=== PATIENT | male | born 1940 | race Caucasian/White ===

== ENCOUNTER 2018-03-14 19:35 | Emergency (ER) | payer OTHER ==
[~2018-03-14] VITALS: Ht 170.2 cm; Wt 125.6 kg
[~2018-03-14 19:35] MED LIST: ABAC300 PO; AMLO5 PO; ASPI81CH PO; ATOR40TA PO; Bactrim Ds Tab1 EACH PO; CEPH500 PO; CIPRO500 MG PO; CLIN300 PO; COLC.6 PO; DOCU100 PO; DOXY100 PO; ERGO50000 PO; FEBU40TA PO; FURO20 PO; FURO80 PO; GEMF600 PO; GLIP2.5ER PO; LISI20 PO; LOVAZA PO; METF500 PO; METO2.5 PO; METO25ER PO; METO50 PO; Metoprolol Succ25 MG PO; NAPR550 PO; Norco 5-325 Ta1 EACH PO; OMEG1CAP30; OMEG1CAP30 PO; OXYACE5T PO; POTA10T PO; PRAV20 PO; QUIN10 PO; RXNAPNA550 PO; SACC250C; SPIR25 PO; Toprol Xl25 MG PO; ULORIC; Ultram50 MG PO; WARF5 PO; XARELTO20 MG PO
[2018-03-14 20:18] LABS: BASOPHILS ABSOLUTE AUTO 0.04 K/mm3 (0.00-0.23); BASOPHILS PERCENT AUTO 1 % (0-2); EOSINOPHILS ABSOLUTE AUTO 0.14 K/mm3 (0.00-0.68); EOSINOPHILS PERCENT AUTO 2 % (0-6); Hematocrit 41.7 % (37.0-53.0); Hemoglobin 13.2 g/dL (13.5-17.5); IMMATURE GRAN ABSOLUTE AUTO 0.03 K/mm3 (0.00-0.10); IMMATURE GRAN PERCENT AUTO 0 % (0-1); LYMPHOCYTES ABSOLUTE AUTO 1.17 K/mm3 (0.84-5.20); LYMPHOCYTES PERCENT AUTO 14 % (21-46); MONOCYTES ABSOLUTE AUTO 0.66 K/mm3 (0.16-1.47); MONOCYTES PERCENT AUTO 8 % (4-13); Mean Corpuscular HGB 27.9 pg (26.0-34.0); Mean Corpuscular HGB Conc 31.7 g/dL (31.5-36.5); Mean Corpuscular Volume 88 fL (80-100); Mean Platelet Volume 10.6 fL (9.1-12.4); NEUTROPHILS ABSOLUTE AUTO 6.45 K/mm3 (1.96-9.15); NEUTROPHILS PERCENT AUTO 76 % (41-73); Platelet Count 245 K/mm3 (150-400); RDW Coefficient Variation 13.5 % (11.7-14.2); RDW Standard Deviation 43.7 fL (35.1-46.3); Red Blood Cell Count 4.73 M/mm3 (4.30-5.90); White Blood Cell Count 8.49 K/mm3 (4.00-11.30)
[2018-03-14 20:21] LABS: Source, Urine Clean Catch
[2018-03-14 20:23] LABS: Bilirubin, Urine Neg (Neg); Blood, Urine 1+ (Neg); Glucose Qualitative, Urine 4+ (Neg); Ketones, Urine Neg (Neg); Leukocyte Esterase, Urine 1+ (Neg); Nitrite, Urine Neg (Neg); Protein, Urine 2+ (Neg); Urobilinogen, Urine NORM (Normal); pH, Urine 6.5 (5.0-8.0)
[2018-03-14 20:30] LABS: Appearance, Urine Clear (Clear); Color, Urine Pale Yellow (P-Yellow)
[2018-03-14 20:33] LABS: Bacteria Rare /hpf; Red Blood Cells, Urine 0-2 /hpf (0-2); Squamous Epithelial Cells Few /hpf (Few); White Blood Cells, Urine 0-2 /hpf (0-5)
[2018-03-14 20:36] LABS: Alanine Aminotransfer (ALT/SGP 25 U/L (12-78); Albumin, Blood 3.3 g/dL (3.4-5.0); Albumin/Globulin Ratio 0.8 (0.8-1.8); Alk Phos 152 U/L (50-136); Anion Gap 7 mmol/L (6-16); Aspartate Aminotrans (AST/SGOT 17 U/L (12-37); Bilirubin, Total 0.3 mg/dL (0.1-1.0); Blood Urea Nitrogen 49 mg/dL (8-24); Bun/Creatinine Ratio 26.6 (12.0-20.0); CO2, Blood 25 mmol/L (21-32); Calcium, Blood 8.6 mg/dL (8.5-10.1); Chloride, Blood 107 mmol/L (98-108); Creatinine, Blood 1.84 mg/dL (0.60-1.20); Globulin, Blood 4.1 g/dL (2.2-4.0); Glomerular Filtration Rate 38 (60-); Glucose, Blood 300 mg/dL (70-99); Potassium, Blood 5.3 mmol/L (3.5-5.5); Sodium, Blood 139 mmol/L (136-145); Total Protein, Blood 7.4 g/dL (6.4-8.2)
[2018-03-14 22:08] LABS: Troponin I <0.015 ng/mL (0.000-0.040)
== END 2018-03-15 00:45 | disposition home or self-care (01) ==
LOC: ER 19:35
PROVIDERS: Emergency Medicine
DX: E11.65 Type 2 diabetes mellitus with hyperglycemia (principal); I11.0 Hypertensive heart disease with heart failure; I50.9 Heart failure, unspecified; I48.91 Unspecified atrial fibrillation; E78.5 Hyperlipidemia, unspecified; Z79.899 Other long term (current) drug therapy; Z79.82 Long term (current) use of aspirin; Z79.84 Long term (current) use of oral hypoglycemic drugs
CPT/HCPCS: 36415; 71046; 74176; 80053; 81000; 81001; 83690; 83880; 84484; 85025; 87086; 93005; 93010; 99284; J1815

== ENCOUNTER 2019-11-21 12:21 | Emergency (ER) | payer OTHER ==
[~2019-11-21] VITALS: Ht 170.2 cm; Wt 117.9 kg
[2019-11-21 12:56] LABS: BASOPHILS ABSOLUTE AUTO 0.03 K/mm3 (0.00-0.23); BASOPHILS PERCENT AUTO 0 % (0-2); EOSINOPHILS ABSOLUTE AUTO 0.13 K/mm3 (0.00-0.68); EOSINOPHILS PERCENT AUTO 1 % (0-6); Hematocrit 45.1 % (37.0-53.0); Hemoglobin 13.7 g/dL (13.5-17.5); IMMATURE GRAN ABSOLUTE AUTO 0.03 K/mm3 (0.00-0.10); IMMATURE GRAN PERCENT AUTO 0 % (0-1); LYMPHOCYTES ABSOLUTE AUTO 1.15 K/mm3 (0.84-5.20); LYMPHOCYTES PERCENT AUTO 12 % (21-46); MONOCYTES ABSOLUTE AUTO 0.61 K/mm3 (0.16-1.47); MONOCYTES PERCENT AUTO 7 % (4-13); Mean Corpuscular HGB Conc 30.4 g/dL (31.5-36.5); Mean Corpuscular Volume 89 fL (80-100); Mean Platelet Volume 10.1 fL (9.1-12.4); NEUTROPHILS ABSOLUTE AUTO 7.33 K/mm3 (1.96-9.15); NEUTROPHILS PERCENT AUTO 79 % (41-73); Platelet Count 335 K/mm3 (150-400); RDW Coefficient Variation 13.8 % (11.7-14.2); RDW Standard Deviation 45.1 fL (35.1-46.3); Red Blood Cell Count 5.07 M/mm3 (4.30-5.90); White Blood Cell Count 9.28 K/mm3 (4.00-11.30)
[2019-11-21 13:18] LABS: Alanine Aminotransfer (ALT/SGP 17 U/L (12-78); Albumin, Blood 3.6 g/dL (3.4-5.0); Albumin/Globulin Ratio 0.7 (0.8-1.8); Alk Phos 139 U/L (50-136); Anion Gap 5 mmol/L (6-16); Aspartate Aminotrans (AST/SGOT 11 U/L (12-37); Bilirubin, Total 0.6 mg/dL (0.1-1.0); Blood Urea Nitrogen 53 mg/dL (8-24); Bun/Creatinine Ratio 27.6 (12.0-20.0); CO2, Blood 28 mmol/L (21-32); Chloride, Blood 106 mmol/L (98-108); Creatinine, Blood 1.92 mg/dL (0.60-1.20); Globulin, Blood 4.9 g/dL (2.2-4.0); Glomerular Filtration Rate 36 (60-); Glucose, Blood 107 mg/dL (70-99); Potassium, Blood 4.7 mmol/L (3.5-5.5); Sodium, Blood 139 mmol/L (136-145); Total Protein, Blood 8.5 g/dL (6.4-8.2); Troponin I <0.015 ng/mL (0.000-0.040)
== END 2019-11-21 16:12 | disposition home or self-care (01) ==
LOC: ER 12:21
PROVIDERS: Physician Assistant
DX: R53.1 Weakness (principal); I11.0 Hypertensive heart disease with heart failure; E11.9 Type 2 diabetes mellitus without complications; I48.91 Unspecified atrial fibrillation; E78.5 Hyperlipidemia, unspecified; M10.9 Gout, unspecified; I50.9 Heart failure, unspecified; Z79.82 Long term (current) use of aspirin; Z79.899 Other long term (current) drug therapy; Z79.84 Long term (current) use of oral hypoglycemic drugs
CPT/HCPCS: 36415; 71046; 80053; 83880; 84484; 85025; 93005; 93010; 99284-25

== ENCOUNTER 2020-10-17 07:30 | Day surgery (SDC) | payer OTHER ==
[~2020-10-17] VITALS: Ht 170.2 cm; Wt 114.9 kg
[~2020-10-17 07:30] MED LIST changes: +Aspir 8181 MG PO; +GLIP5 PO; +METO25 PO
--- NOTE | 2020-10-17 08:03 | NUR ---
10/17/20 0803 Freida Manzo PT IS A POOR HISTORIAN.
--- NOTE | 2020-10-17 10:26 | NUR ---
10/17/20 1026 Adela Bowden PT'S FEET NOTED TO BE VERY SOILED, POOR HYGIENE. PER PT OK, TRIED TO CLEAN HIS FEET FOR HIM. OPEN SORE NOTED ON LEFT GREAT TOE, C/O SORENESS TO LEFT FOOT. INSTRUCTED TO SEE PCP FOR TREATMENT. PT VERBALIZES UNDERSTANDING.
== END 2020-10-17 10:17 | disposition home or self-care (01) ==
LOC: ORSCSDS 07:30
PROVIDERS: Ophthalmology
PROC: 08RJ3JZ Replacement of Right Lens with Synthetic Substitute, Percutaneous Approach (ICD-10-PCS; principal; 2020-10-17 08:45)
DX: H25.11 Age-related nuclear cataract, right eye (principal); I10 Essential (primary) hypertension; E11.9 Type 2 diabetes mellitus without complications; G47.33 Obstructive sleep apnea (adult) (pediatric); E78.5 Hyperlipidemia, unspecified; N18.30 Chronic kidney disease, stage 3 unspecified; I48.91 Unspecified atrial fibrillation; Z79.01 Long term (current) use of anticoagulants; Z79.82 Long term (current) use of aspirin; Z79.899 Other long term (current) drug therapy; E66.01 Morbid (severe) obesity due to excess calories; Z68.39 Body mass index [BMI] 39.0-39.9, adult
CPT/HCPCS: 82947; J2001; J2250; J2370; J3010; J3301; J7040; V2632

== ENCOUNTER 2020-11-13 09:29 | Day surgery (SDC) | payer OTHER ==
[~2020-11-13] VITALS: Ht 170.2 cm; Wt 111.5 kg
[~2020-11-13 09:29] MED LIST changes: -Aspir 8181 MG PO; -FEBU40TA PO; -FURO20 PO; -GLIP5 PO; -LISI20 PO; -METO25 PO
--- NOTE | 2020-11-13 12:08 | NUR ---
11/13/20 1208 Clara Breaux LATE ENTRY---UPON ADMIT IT WAS NOTICED THAT THE PATIENT AND HIS CLOTHES WERE VERY DIRTY, FINGERNAILS UNKEPT AND DIRTY AND PATIENT HAS A SORE ON THE LEFT RING FINGER AROUND HIS NAIL THAT HE STATES WAS CAUSED WHEN HE FELL. THE AREA APPEARS DIRTY WITH A LARGE DRY SCAB AND AROUND THIS THE SKIN IS RED AND IRRITATED. PATIENTS FEET WERE IN SLIPPERS BUT HIS ANKLES WERE VERY DIRTY AND THERE WAS A LARGE AMOUNT OF DEBRIS FALLING OUT OF THE SLIPPERS ONTO THE BED. THE PATIENT IS ABLE TO ANSWER ALL QUESTIONS APPROPRIATELY. HE IS ONLY UNAWARE OF WHICH MEDICATIONS HE TAKES HE STATES HIS CAREGIVER GIVES HIS PILLS TO HIM BUT HE DOES KNOW HE TOOK THEM AT ABOUT 7AM. DISCUSSED WITH PATIENT THAT HE SHOULD HAVE DOCTOR LOOK AT HIS FINGER IT MAY BE GETTING INFECTED. HE ASKED ME TO BUT SOME ANTIBIOTIC CREAM ON IT BUT IT EXPLAINED TO HIM I WASN'T ABLE TO DO THIS WITHOUT A PHYSICIAN ORDER. I DID DISCUSS THIS PATIENT WITH DR LEMUS AND DR VANEGAS. BOTH DOCTORS STATE THIS PATIENT HAS IMPROVED IN HIS CLEANLINESS SINCE PRIOR VISIT IN 10/14 WHEN SENIOR SERVICES WAS CALLED. BOTH DOCTORS FEEL THE PATIENT IS BETTER AND DR LEMUS STATES HIS OFFICE IS AWARE OF THE SITUATION AND WILL CONTINUE TO MONITOR PATIENT.
== END 2020-11-13 12:12 | disposition home or self-care (01) ==
LOC: ORSCSDS 09:29
PROVIDERS: Ophthalmology
PROC: 08RK3JZ Replacement of Left Lens with Synthetic Substitute, Percutaneous Approach (ICD-10-PCS; principal; 2020-11-13 11:00)
DX: H25.12 Age-related nuclear cataract, left eye (principal); I10 Essential (primary) hypertension; I48.91 Unspecified atrial fibrillation; G47.33 Obstructive sleep apnea (adult) (pediatric); E11.9 Type 2 diabetes mellitus without complications; E66.9 Obesity, unspecified; Z68.38 Body mass index [BMI] 38.0-38.9, adult; Z79.899 Other long term (current) drug therapy
CPT/HCPCS: 82947; J2001; J2250; J3010; J3301; J7040; V2632

== ENCOUNTER 2020-11-16 14:43 | Emergency (ER) | payer OTHER ==
[~2020-11-16] VITALS: Ht 170.2 cm; Wt 113.4 kg
[2020-11-16 15:20] LABS: Hematocrit 34.4 % (37.0-53.0); Hemoglobin 9.7 g/dL (13.5-17.5); Mean Corpuscular HGB 24.1 pg (26.0-34.0); Mean Corpuscular HGB Conc 28.2 g/dL (31.5-36.5); Mean Corpuscular Volume 86 fL (80-100); Mean Platelet Volume 10.3 fL (9.1-12.4); Platelet Count 346 K/mm3 (150-400); RDW Coefficient Variation 15.7 % (11.7-14.2); RDW Standard Deviation 48.6 fL (35.1-46.3); Red Blood Cell Count 4.02 M/mm3 (4.30-5.90); White Blood Cell Count 8.48 K/mm3 (4.00-11.30)
[2020-11-16 15:49] LABS: Albumin/Globulin Ratio 0.7 (0.8-1.8); BASOPHILS PERCENT MAN 0 % (0-2); Bilirubin, Total 0.3 mg/dL (0.1-1.0); Bun/Creatinine Ratio 26.2 (12.0-20.0); Calcium, Blood 8.4 mg/dL (8.5-10.1); Creatinine, Blood 2.25 mg/dL (0.60-1.20); EOSINOPHILS ABSOLUTE MAN 0.16 K/mm3 (0.00-0.68); EOSINOPHILS PERCENT MAN 2 % (0-6); Globulin, Blood 4.3 g/dL (2.2-4.0); LYMPHOCYTES ABSOLUTE MAN 1.44 K/mm3 (0.84-5.20); LYMPHOCYTES PERCENT MAN 17 % (21-46); METAMYELOCYTE ABSOLUTE MAN 0.08 K/mm3 (0.00-0.00); METAMYELOCYTE PERCENT MAN 1 % (0-0); MONOCYTES PERCENT MAN 6 % (4-13); NEUTROPHILS ABSOLUTE MAN 6.27 K/mm3 (1.96-9.15); Potassium, Blood 5.7 mmol/L (3.5-5.5); SEG NEUTROPHILS PERCENT MAN 74 % (41-73); TOTAL CELLS COUNTED 100; Total Protein, Blood 7.3 g/dL (6.4-8.2)
[2020-11-16] MEDS ORDERED: LOKELMA PO (16:25)
== END 2020-11-16 17:11 | disposition home or self-care (01) ==
LOC: ER 14:43
PROVIDERS: Physician Assistant
DX: Z11.59 Encounter for screening for other viral diseases (principal); E87.5 Hyperkalemia; E11.22 Type 2 diabetes mellitus with diabetic chronic kidney disease; I12.9 Hypertensive chronic kidney disease with stage 1 through stage 4 chronic kidney disease, or unspecified chronic kidney disease; N18.9 Chronic kidney disease, unspecified; I48.91 Unspecified atrial fibrillation; Z79.899 Other long term (current) drug therapy; Z79.82 Long term (current) use of aspirin; Z79.01 Long term (current) use of anticoagulants; I10 Essential (primary) hypertension; E78.5 Hyperlipidemia, unspecified
CPT/HCPCS: 36415; 80053; 80061; 82043; 83036; 85025; 86803; 93005; 93010; 99283-25; A9270

== ENCOUNTER → 2021-01-11 | Outpatient (CLI) | payer OTHER ==
[~2021-01-11] MED LIST changes: +Aspir 8181 MG PO; +FEBU40TA PO; +FURO20 PO; +GLIP5ER PO; +LISI20 PO; +LOKELMA PO; +METO25 PO; +OMEGA-3 FISH O1 EAC6 PO; +POTA8 PO
== END | disposition home or self-care (01) ==
LOC: LAB SHORT 14:21 → PLD 14:21
DX: L91.8 Other hypertrophic disorders of the skin (principal); D22.5 Melanocytic nevi of trunk
CPT/HCPCS: 88305

== ENCOUNTER 2021-01-28 15:19 | Emergency (ER) | payer OTHER ==
[~2021-01-28] VITALS: Ht 170.2 cm; Wt 83.9 kg
[~2021-01-28 15:19] MED LIST changes: -Aspir 8181 MG PO; -FEBU40TA PO; -FURO20 PO; -GLIP5ER PO; -LISI20 PO; -METO25 PO; -OMEGA-3 FISH O1 EAC6 PO; -POTA8 PO
[2021-01-28 15:57] LABS: BASOPHILS ABSOLUTE AUTO 0.03 K/mm3 (0.00-0.23); BASOPHILS PERCENT AUTO 0 % (0-2); EOSINOPHILS PERCENT AUTO 1 % (0-6); Hematocrit 35.2 % (37.0-53.0); Hemoglobin 10.2 g/dL (13.5-17.5); IMMATURE GRAN ABSOLUTE AUTO 0.04 K/mm3 (0.00-0.10); IMMATURE GRAN PERCENT AUTO 1 % (0-1); LYMPHOCYTES ABSOLUTE AUTO 1.04 K/mm3 (0.84-5.20); LYMPHOCYTES PERCENT AUTO 13 % (21-46); MONOCYTES ABSOLUTE AUTO 0.55 K/mm3 (0.16-1.47); MONOCYTES PERCENT AUTO 7 % (4-13); Mean Corpuscular HGB 23.4 pg (26.0-34.0); Mean Corpuscular Volume 81 fL (80-100); Mean Platelet Volume 10.1 fL (9.1-12.4); NEUTROPHILS ABSOLUTE AUTO 6.23 K/mm3 (1.96-9.15); NEUTROPHILS PERCENT AUTO 78 % (41-73); Platelet Count 343 K/mm3 (150-400); RDW Coefficient Variation 16.3 % (11.7-14.2); RDW Standard Deviation 48.2 fL (35.1-46.3); Red Blood Cell Count 4.35 M/mm3 (4.30-5.90); White Blood Cell Count 7.99 K/mm3 (4.00-11.30)
[2021-01-28 16:24] LABS: Troponin I <0.015 ng/mL (0.000-0.040)
[2021-01-28 16:29] LABS: Alanine Aminotransfer (ALT/SGP 18 U/L (12-78); Albumin, Blood 2.9 g/dL (3.4-5.0); Albumin/Globulin Ratio 0.6 (0.8-1.8); Alk Phos 124 U/L (50-136); Anion Gap 4 mmol/L (6-16); Aspartate Aminotrans (AST/SGOT 25 U/L (12-37); Bilirubin, Total 0.4 mg/dL (0.1-1.0); Blood Urea Nitrogen 55 mg/dL (8-24); Bun/Creatinine Ratio 27.6 (12.0-20.0); CO2, Blood 26 mmol/L (21-32); Calcium, Blood 8.6 mg/dL (8.5-10.1); Chloride, Blood 109 mmol/L (98-108); Creatinine, Blood 1.99 mg/dL (0.60-1.20); Globulin, Blood 4.6 g/dL (2.2-4.0); Glomerular Filtration Rate 35 (60-); Glucose, Blood 210 mg/dL (70-99); Sodium, Blood 139 mmol/L (136-145); Total Protein, Blood 7.5 g/dL (6.4-8.2)
[2021-01-28 17:38] LABS: Source, Urine Clean Catch
[2021-01-28 17:49] LABS: Appearance, Urine Hazy (Clear); Bilirubin, Urine Neg (Neg); Blood, Urine Neg (Neg); Color, Urine Yellow (P-Yellow); Glucose Qualitative, Urine Neg (Neg); Ketones, Urine Neg (Neg); Leukocyte Esterase, Urine 1+ (Neg); Nitrite, Urine Neg (Neg); Protein, Urine Neg (Neg); Specific Gravity, Urine 1.015 (1.003-1.022); Urobilinogen, Urine NORM (Normal)
[2021-01-28 17:59] LABS: Red Blood Cells, Urine 0-2 /hpf (0-2)
[2021-01-28 18:00] LABS: Bacteria Few /hpf; Mucus Mod (0-Heavy); Squamous Epithelial Cells Rare /hpf (Few)
[2021-01-28 18:05] LABS: Calcium, Ionized (POC) 1.13 mmol/L (1.10-1.46); Chloride (POC) 106 mmol/L (98-108); Creatinine (POC) 2.3 mg/dL (0.8-1.3); Glucose (ISTAT POC) 116 mg/dL (70-99); Hemoglobin (POC) 11.6 g/dL (13.5-17.5); Potassium (POC) 4.9 mmol/L (3.5-5.5); Sodium (POC) 142 mmol/L (135-148); Total CO2 (POC) 24 mmol/L (21-32)
== END 2021-01-28 19:35 | disposition home or self-care (01) ==
LOC: ER 15:19
PROVIDERS: Emergency Medicine; Physician Assistant
DX: R53.1 Weakness (principal); Z79.01 Long term (current) use of anticoagulants; Z79.84 Long term (current) use of oral hypoglycemic drugs; Z79.82 Long term (current) use of aspirin; Z79.899 Other long term (current) drug therapy
CPT/HCPCS: 36415; 80047; 80053; 81001; 83690; 83880; 84484; 85014; 85025; 93005; 93010; 99284-25

== ENCOUNTER 2021-04-26 19:25 | Inpatient (IN) | payer OTHER ==
[~2021-04-26] VITALS: Ht 170.2 cm; Wt 118.4 kg
[2021-04-26 19:52] LABS: BASOPHILS ABSOLUTE AUTO 0.03 K/mm3 (0.00-0.23); BASOPHILS PERCENT AUTO 0 % (0-2); EOSINOPHILS ABSOLUTE AUTO 0.02 K/mm3 (0.00-0.68); EOSINOPHILS PERCENT AUTO 0 % (0-6); Hematocrit 24.3 % (37.0-53.0); Hemoglobin 6.8 g/dL (13.5-17.5); IMMATURE GRAN ABSOLUTE AUTO 0.04 K/mm3 (0.00-0.10); IMMATURE GRAN PERCENT AUTO 0 % (0-1); LYMPHOCYTES ABSOLUTE AUTO 0.59 K/mm3 (0.84-5.20); LYMPHOCYTES PERCENT AUTO 6 % (21-46); MONOCYTES ABSOLUTE AUTO 0.71 K/mm3 (0.16-1.47); MONOCYTES PERCENT AUTO 7 % (4-13); Mean Corpuscular HGB 22.1 pg (26.0-34.0); Mean Corpuscular Volume 79 fL (80-100); Mean Platelet Volume 10.3 fL (9.1-12.4); NEUTROPHILS ABSOLUTE AUTO 9.43 K/mm3 (1.96-9.15); NEUTROPHILS PERCENT AUTO 87 % (41-73); NRBC ABSOLUTE 0.03 K/mm3 (0.00-0.02); NRBC Auto 0.3 /100 WBC (0.0-0.2); Platelet Count 395 K/mm3 (150-400); RDW Standard Deviation 48.1 fL (35.1-46.3); Red Blood Cell Count 3.07 M/mm3 (4.30-5.90); White Blood Cell Count 10.82 K/mm3 (4.00-11.30)
[2021-04-26 20:14] LABS: Magnesium, Blood 2.9 mg/dL (1.6-2.4); Troponin I <0.015 ng/mL (0.000-0.040)
[2021-04-26] MEDS ORDERED: XARELTO20 MG PO (20:26)
[2021-04-26] MEDS ORDERED: GLIP5ER PO (20:26)
[2021-04-26] MEDS ORDERED: POTA8 PO (20:27)
[2021-04-26] MEDS ORDERED: FEBU40TA PO (20:28)
[2021-04-26] MEDS ORDERED: FURO20 PO (20:28)
[2021-04-26] MEDS ORDERED: METO25 PO (20:28)
[2021-04-26] MEDS ORDERED: LISI20 PO (20:28)
[2021-04-26] MEDS ORDERED: Aspir 8181 MG PO (20:28)
[2021-04-26 20:32] LABS: Alanine Aminotransfer (ALT/SGP 15 U/L (12-78); Albumin, Blood 2.8 g/dL (3.4-5.0); Albumin/Globulin Ratio 0.7 (0.8-1.8); Alk Phos 118 U/L (50-136); Anion Gap 7 mmol/L (6-16); Aspartate Aminotrans (AST/SGOT 12 U/L (12-37); Bilirubin, Total 0.3 mg/dL (0.1-1.0); Blood Urea Nitrogen 134 mg/dL (8-24); Bun/Creatinine Ratio 23.2 (12.0-20.0); CO2, Blood 18 mmol/L (21-32); Calcium, Blood 7.7 mg/dL (8.5-10.1); Chloride, Blood 113 mmol/L (98-108); Creatinine, Blood 5.78 mg/dL (0.60-1.20); Globulin, Blood 4.1 g/dL (2.2-4.0); Glomerular Filtration Rate 10 (60-); Glucose, Blood 139 mg/dL (70-99); Potassium, Blood 8.5 mmol/L (3.5-5.5); Sodium, Blood 138 mmol/L (136-145); Total Protein, Blood 6.9 g/dL (6.4-8.2)
[2021-04-26] MEDS ORDERED: OMEGA-3 FISH O1 EAC6 PO (20:36)
[2021-04-26 21:58] LABS: Source, Urine Voided
[2021-04-26 22:01] LABS: Appearance, Urine Clear (Clear); Bilirubin, Urine Neg (Neg); Blood, Urine 3+ (Neg); Color, Urine Yellow (P-Yellow); Glucose Qualitative, Urine Neg (Neg); Ketones, Urine Neg (Neg); Leukocyte Esterase, Urine 3+ (Neg); Nitrite, Urine Neg (Neg); Protein, Urine 2+ (Neg); Urobilinogen, Urine NORM (Normal)
[2021-04-26 22:09] LABS: Bacteria Mod /hpf; Squamous Epithelial Cells Few /hpf (Few)
[2021-04-27 03:21] LABS: BASOPHILS ABSOLUTE AUTO 0.02 K/mm3 (0.00-0.23); BASOPHILS PERCENT AUTO 0 % (0-2); EOSINOPHILS ABSOLUTE AUTO 0.02 K/mm3 (0.00-0.68); EOSINOPHILS PERCENT AUTO 0 % (0-6); Hematocrit 28.3 % (37.0-53.0); Hemoglobin 8.2 g/dL (13.5-17.5); IMMATURE GRAN ABSOLUTE AUTO 0.06 K/mm3 (0.00-0.10); IMMATURE GRAN PERCENT AUTO 1 % (0-1); LYMPHOCYTES ABSOLUTE AUTO 0.82 K/mm3 (0.84-5.20); LYMPHOCYTES PERCENT AUTO 7 % (21-46); MONOCYTES PERCENT AUTO 8 % (4-13); Mean Corpuscular HGB 23.6 pg (26.0-34.0); Mean Corpuscular Volume 81 fL (80-100); Mean Platelet Volume 9.8 fL (9.1-12.4); NEUTROPHILS ABSOLUTE AUTO 9.51 K/mm3 (1.96-9.15); NEUTROPHILS PERCENT AUTO 84 % (41-73); NRBC ABSOLUTE 0.04 K/mm3 (0.00-0.02); NRBC Auto 0.4 /100 WBC (0.0-0.2); Platelet Count 359 K/mm3 (150-400); RDW Coefficient Variation 17.9 % (11.7-14.2); RDW Standard Deviation 52.3 fL (35.1-46.3); Red Blood Cell Count 3.48 M/mm3 (4.30-5.90); White Blood Cell Count 11.33 K/mm3 (4.00-11.30)
[2021-04-27 03:40] LABS: Uric Acid, Blood 3.2 mg/dL (3.5-7.2)
[2021-04-27 03:50] LABS: Magnesium, Blood 2.6 mg/dL (1.6-2.4)
[2021-04-27 03:56] LABS: Albumin, Blood 2.8 g/dL (3.4-5.0); Anion Gap 8 mmol/L (6-16); Blood Urea Nitrogen 131 mg/dL (8-24); Bun/Creatinine Ratio 23.1 (12.0-20.0); CO2, Blood 18 mmol/L (21-32); Calcium, Blood 7.3 mg/dL (8.5-10.1); Chloride, Blood 113 mmol/L (98-108); Creatinine, Blood 5.67 mg/dL (0.60-1.20); Glomerular Filtration Rate 10 (60-); Glucose, Blood 103 mg/dL (70-99); Phosphorus, Blood 8.4 mg/dL (2.5-4.9); Sodium, Blood 139 mmol/L (136-145)
[2021-04-27 04:07] LABS: Potassium, Blood 7.3 mmol/L (3.5-5.5)
--- NOTE | 2021-04-27 06:48 | NUR ---
ASSUMPTION OF CARE/ SHIFT SUMMARY PT ARRIVED TO ICU FROM ER VIA GURNEY, TX TO BED VIA SLIDER SHEET. PT ALERT BUT CONFUSED UPON ARRIVAL. FOLLOWING COMMANDS BUT QUICKLY FORGETS WHAT WAS SAID. UNSURE OF PTS BASELINE MENTAL STATUS, PER REPORT EMS DID NOT INFORM ER NURSE. PT FIDGETY, UNCOMFORTABLE, GRABBING AT LINES AND HEALY CATH. THIS NURSE IN PT ROOM ATTEMPTING TO REDIRECT WITHOUT SUCCESS, BL SOFT WRIST RESTRAINTS PLACED TO PROTECT LINES. PTS SKIN DRY AND FLAKY, SEE PHOTOS IN CHART. SODIUM BICARB INFUSING @ 100/HR. SECOND UNIT OF PRBC INITIATED UPON ARRIVAL TO THE UNIT. PROTONIX GTT INFUSING. TEMP HEALY CATH PATENT, DRAINING SCANT AMOUNT OF RED URINE. UNSURE OF LAST BM, PT POOR HISTORIAN. DR. PENDLETON HAS BEEN CONSULTED, MANAGING PT AT THIS TIME. DR BARBOZA ALSO CONSULTED, NOTIFIED THIS AM OF THE NEED FOR DIALYSIS CATHETER. VSS IMPROVING AT THIS TIME. REPORT GIVEN TO ONCOMING NURSE.
--- NOTE | 2021-04-27 08:58 | NUR ---
CARE ASSUMED OF PT AT 0700. PT SLEEPING, AWAKENS EASILY TO VOICE, STARTLES EASILY. SPEECH GARBLED AND DIFFICULT TO UNDERSTAND AT TIMES, BUT ORIENTED TO SELF AND DATE. STATES HE IS ESTRANGED FROM CHILDREN. DOES NOT KNOW HOW HE ENDED UP HERE. PT REQUEST TO HAVE "TIES" REMOVED FROM WRIST. RESTRAINTS REMOVED AT 0730. PT VERY DROWSY, FALLS ASLEEP IN BETWEEN QUESTIONS. ORAL CARE COMPLETED, PT COUGHED/CHOCKED ON FLUID FROM SWAB, PT SX'D. WILL KEEP NPO. PT DOES HAVE SOME APNEA WITH SLEEP, SATS DO NOT FALL. 02 AT 2L H&H LOW. BP LOW NORMAL W MAPS>65. BICARB GTT INFUSING AT 100/HR. PROTONIX GTT INFUSING. DR PENDLETON CALLED THIS AM R/T K+6.4. / AMP BICARB ORDERED, INCREASED GTT TO 150CC/HR W PLANS TO START HD THIS AM; DR BARBOZA TO PLACE MAHURKER CATH. AFTER THIS ORDER OBTAINED PT BECAME HYPOTENSIVE W BP 69/42, MAP AROUND 57-60. DR BARBOZA CALLED, 500CC NS BOLUS STARTED, LEVOPHED AVAILABLE. PT IS RESPONDING TO FLUIDS. STAT H&H DRAWN. DR BARBOZA IN UNIT NOW AND WILL PLACE DIALYSIS CATH SHORTLY.
[2021-04-27 09:00] LABS: Hematocrit 27.7 % (37.0-53.0); Hemoglobin 8.1 g/dL (13.5-17.5)
--- NOTE | 2021-04-27 09:10 | NUR ---
H&H STABLE, HAS NOT CHANGED MUCH FROM EARLIER RESULTS.
--- NOTE | 2021-04-27 10:22 | NUR ---
TRIALYSIS CATH PLACED TO [facility] BY DR BARBOZA FOR HD TODAY. PLACED W/O DIFFICULTY. VILMA Gay DIALYSIS NOTIFIED. HD WILL BE AROUND [address] PENDLETON NOTIFIED. NO ORDERES TO RECHECK K+, WILL BE TREATED W HD TODAY. LEVOPHED BRIEFLY STARTED BUT THEN PLACED ON STANDBY BP STABLE.
--- NOTE | 2021-04-27 12:36 | NUR ---
VILMA GOODE AT BEDSIDE TO START HD. LEVOPHED STARTED AT 2MCG FOR MAP <65.
--- NOTE | 2021-04-27 12:38 | NUR ---
LOTION APPLIED TO DRY AND SCALING LEGS. SCD'S PLACED. ABD FOLDS CLEANED, NYSTATIN POWDER PLACED.
--- NOTE | 2021-04-27 13:26 | NUR ---
DR ESPINO IN TO SEE PT, FULL UPDATE GIVEN.
--- NOTE | 2021-04-27 13:40 | NUR ---
CAROLYN SOUSA CONTACTED, LISTED NEXT OF KIN. CAROLYN CONTACTED W PT'S PERMISSION. CAROLYN LIVES ON PT'S PROPERTY AND ASSISTED WITH DAILY MEDS, GROCERY, MEALS, APPOINTMENTS. FRIEND STATES PT WAS CONFUSED X3 DAYS W SLURRED SPEECH, EACH DAY'S SYMPTOMS A LITTLE WORSE THAN THE PREVIOUS DAYS. PT DECLINED EMS. ON THIRD DAY PT WAS FOUND BY FRINED VERY CONFUSED IN YARD W PANTS PULLED DOWN. EMS WAS THEN CALLED. THIS INFO RELAYED TO DR BARBOZA. PLAN TO SCAN HEAD TOMORROW TO R/O CVA.
--- NOTE | 2021-04-27 14:50 | NUR ---
HD COMPLETE. 1.5L TAKEN OFF. BP STABLE W LEVOPHED AT 2MCG. PT REQUIRES FREQUEST ORAL SUCTIONING, UNABLE TO CLEAR SECRETIONS WELL. SECRETIONS THICK AND COPIOUS.
--- NOTE | 2021-04-27 15:44 | NUR ---
EYELET OPERATOR AT BEDSIDE.
--- NOTE | 2021-04-27 16:28 | NUR ---
Echocardiogram completed.
[2021-04-27 17:59] LABS: Percent Saturation 13.5 % (20.0-50.0)
--- NOTE | 2021-04-27 18:10 | NUR ---
POWERGLIDE PLACED TO GUSTAVO. LEVOPHED PLACED ON STANDBY. PT CONTINUES TO AWAKEN TO VOICE AND ANSWER QUESTIONS APPROPRIATELY, PT HAS HUMOR WELL. PT CONTINUES TO CHOKE ON SECRETIONS, VERY POOR GAG AND VERY POOR SWALLOW. PT REQUIRES FREQUENT DEEP SUCTIONING DOWN BACK OF THROAT.
[2021-04-27 18:50] LABS: Albumin, Blood 2.4 g/dL (3.4-5.0); Anion Gap 6 mmol/L (6-16); Blood Urea Nitrogen 80 mg/dL (8-24); Bun/Creatinine Ratio 21.4 (12.0-20.0); CO2, Blood 29 mmol/L (21-32); Calcium, Blood 7.3 mg/dL (8.5-10.1); Chloride, Blood 108 mmol/L (98-108); Creatinine, Blood 3.74 mg/dL (0.60-1.20); Glomerular Filtration Rate 17 (60-); Glucose, Blood 139 mg/dL (70-99); Potassium, Blood 4.5 mmol/L (3.5-5.5); Sodium, Blood 143 mmol/L (136-145)
[2021-04-27 19:03] LABS: Phosphorus, Blood 4.9 mg/dL (2.5-4.9)
--- NOTE | 2021-04-27 21:39 | NUR ---
SHIFT ASSESSMENT ASSUMED CARE OF PT @ 1900. REPORT RECEIVED FROM RUSSEL DSOUZA. PT ALERT AND ORIENTED TO SELF, KNOWS HE IS IN [facility] BUT UNSURE WHY. THIS NURSE EXPLAINED WHY PT IS HERE, PT UNDERSTANDING BUT FORGETS RATHER QUICKLY. PLEASANT AT THIS TIME, FOLLOWING SIMPLE COMMANDS, YOO, GENERALIZED WEAKNESS. FALLS ASLEEP QUICKLY AFTER DECREASED STIMULATION. PT HAVING DIFFICULTY MANAGING SECRETIONS, POOR SWALLOW BUT ABLE TO COUGH AND SPIT COPIOUS AMNTS OF THICK SECRETIONS INTO SUCTION. INITIALLY ON 2LPM VIA NC, O2 TITRATED TO 4LPM WHILE SLEEPING DUE TO SLEEP APNEA. LEVOPHED GTT @ 2MCG/MIN. EVENING RENAL PANEL RESULTS RELAYED TO DR. PENDLETON, NAHCO3 DC'D, CHANGED TO NS @ 100/HR. TEMP HEALY CATH PATENT, DRAINING TO HEALY BAG ON ICE FOR 24 HR URINE. WILL CONTINUE TO MONITOR CLOSELY.
[2021-04-28 03:24] LABS: Protein, Urine Quantitative 43.9 mg/dL (0.0-11.9)
[2021-04-28 03:32] LABS: BASOPHILS ABSOLUTE AUTO 0.03 K/mm3 (0.00-0.23); BASOPHILS PERCENT AUTO 0 % (0-2); EOSINOPHILS ABSOLUTE AUTO 0.14 K/mm3 (0.00-0.68); EOSINOPHILS PERCENT AUTO 1 % (0-6); Hematocrit 25.5 % (37.0-53.0); Hemoglobin 7.5 g/dL (13.5-17.5); IMMATURE GRAN ABSOLUTE AUTO 0.05 K/mm3 (0.00-0.10); IMMATURE GRAN PERCENT AUTO 1 % (0-1); LYMPHOCYTES ABSOLUTE AUTO 0.64 K/mm3 (0.84-5.20); LYMPHOCYTES PERCENT AUTO 6 % (21-46); MONOCYTES ABSOLUTE AUTO 1.16 K/mm3 (0.16-1.47); MONOCYTES PERCENT AUTO 11 % (4-13); Mean Corpuscular HGB 23.4 pg (26.0-34.0); Mean Corpuscular HGB Conc 29.4 g/dL (31.5-36.5); Mean Corpuscular Volume 79 fL (80-100); Mean Platelet Volume 9.5 fL (9.1-12.4); NEUTROPHILS ABSOLUTE AUTO 8.71 K/mm3 (1.96-9.15); NEUTROPHILS PERCENT AUTO 81 % (41-73); Platelet Count 321 K/mm3 (150-400); RDW Coefficient Variation 18.4 % (11.7-14.2); RDW Standard Deviation 52.4 fL (35.1-46.3); Red Blood Cell Count 3.21 M/mm3 (4.30-5.90); White Blood Cell Count 10.73 K/mm3 (4.00-11.30)
[2021-04-28 03:50] LABS: Albumin, Blood 2.4 g/dL (3.4-5.0); Albumin/Globulin Ratio 0.7 (0.8-1.8); Bilirubin, Total 0.5 mg/dL (0.1-1.0); Bun/Creatinine Ratio 21.6 (12.0-20.0); Creatinine, Blood 3.48 mg/dL (0.60-1.20); Globulin, Blood 3.5 g/dL (2.2-4.0); Magnesium, Blood 2.2 mg/dL (1.6-2.4); Phosphorus, Blood 5.3 mg/dL (2.5-4.9); Potassium, Blood 4.8 mmol/L (3.5-5.5); Total Protein, Blood 5.9 g/dL (6.4-8.2)
--- NOTE | 2021-04-28 06:38 | NUR ---
SHIFT SUMMARY NO SIGNIFICANT CHANGES IN PT MENTATION. CONTINUES TO BE INTERMITTENTLY CONFUSED, EASILY REDIRECTABLE, PLEASANT T/O THE NIGHT. PT SEEMS TO BE ABLE TO MANAGE SECRETIONS BETTER WITH COACHING, WILL CLEAR THROAT AND ALLOW THIS NURSE TO SUCTION MOUTH. LARGE AMOUNTS OF THICK, WHITE SECRETIONS. LEVOPHED CONTINUES @ 2MCG/MIN c MAP >60. DIALYSIS CATH DRESSING CHANGED. TEMP HAELY CATH DRAINING CLEAR, YELLOW URINE. 24 HR URINE COLLECTED @ 0300, TRANSPORTED TO LAB. NO OTHER SIGNIFICANT CHANGES IN PT CONDITION, WILL CONTINUE TO MONITOR.
[2021-04-28 08:11] LABS: HBSAG SCREEN Negative (Negative); HEP A AB, IGM Negative (Negative); HEP B CORE AB, IGM Negative (Negative); HEP B SURFACE AB Non Reactive (.); HEP C VIRUS AB <0.1 (0.0-0.9)
--- NOTE | 2021-04-28 08:32 | NUR ---
CARE ASSUMED AT 0700. PT MORE AWAKE/ALERT THIS AM. SPEECH SLIGHTLY MORE CLEAR. REMAINS SOMEHWAT GARBLED. PT STILL HAS A DIFFICULT TIME CLEARING SECRETIONS. COPIOUS THICK SECRETIONS CLEANED/SX'D FROM MOUTH. PT'S HAND WHEEL INSTALLER AND FOOT STRENGTH STRONG AND EVEN T/O. SATS >90% ON 4L VIA N/C. PT ASSISTED W FLUTTER VALVE, ABLE TO DO ON OWN. LEVOPHED AT 2MCG THIS AM, PLACED ON STANDBY. PT TO HAVE HD TODAY. PT PLACED IN HIGH FOWLERS TO FACILITATE PULM TOILETING. DR MONREAL AT BEDSIDE, FULL UPDATE GIVEN.
--- NOTE | 2021-04-28 09:33 | NUR ---
LEVOPHED STARTED AT 2MCG FOR MAP <60
--- NOTE | 2021-04-28 12:16 | NUR ---
PT TO AND BACK FROM CT FOR CT OF HEAD, PT MIRIAM WELL. PROTONIX GTT DC'D PER DR BARBOZA. ALBUMIN INFUSING.
--- NOTE | 2021-04-28 13:28 | NUR ---
ALBUMIN COMPLETE, MAP 54, VILMA RN AT BEDSIDE TO START HD. LEVOPHED STARTED AT 2MCG. PT SLEEPING COMFORTABLY
--- NOTE | 2021-04-28 16:19 | NUR ---
HD COMPLETE, 1.5L TAKEN OFF. LEVOPHED GTT PLACED ON STANDBY. PT'S SON IS AT BEDSIDE NOW.
--- NOTE | 2021-04-28 22:00 | NUR ---
SHIFT ASSESSMENT ASSUMED CARE OF PT @ 1900. REPORT RECEIVED FROM RUSSEL DSOUZA. PT ALERT AND ORIENTED TO PERSON. FOLLOWING COMMANDS, SQUEEZING BOTH HANDS EQUALLY. APPEARS TO BE MANAGING SECRETIONS BETTER AT THIS TIME, MUCH LESS GURGLING THAN LAST NIGHT. REMAINS ON 2LPM O2 VIA NC c O2 SATS >95%. LEVOPHED INITIALLY ON SB, CURRENTLY @ 2MCG/MIN c MAP >60. TEMP HEALY CATH DRAINING CLEAR/ YELLOW URINE. WILL CONTINUE TO MONITOR CLOSELY.
[2021-04-29 03:30] LABS: BASOPHILS ABSOLUTE AUTO 0.02 K/mm3 (0.00-0.23); BASOPHILS PERCENT AUTO 0 % (0-2); EOSINOPHILS PERCENT AUTO 1 % (0-6); Hematocrit 25.4 % (37.0-53.0); Hemoglobin 7.3 g/dL (13.5-17.5); IMMATURE GRAN ABSOLUTE AUTO 0.04 K/mm3 (0.00-0.10); IMMATURE GRAN PERCENT AUTO 1 % (0-1); LYMPHOCYTES ABSOLUTE AUTO 0.59 K/mm3 (0.84-5.20); LYMPHOCYTES PERCENT AUTO 7 % (21-46); MONOCYTES ABSOLUTE AUTO 1.14 K/mm3 (0.16-1.47); MONOCYTES PERCENT AUTO 14 % (4-13); Mean Corpuscular HGB 23.6 pg (26.0-34.0); Mean Corpuscular HGB Conc 28.7 g/dL (31.5-36.5); Mean Corpuscular Volume 82 fL (80-100); Mean Platelet Volume 9.4 fL (9.1-12.4); NEUTROPHILS PERCENT AUTO 78 % (41-73); Platelet Count 282 K/mm3 (150-400); RDW Coefficient Variation 18.9 % (11.7-14.2); RDW Standard Deviation 55.6 fL (35.1-46.3); Red Blood Cell Count 3.09 M/mm3 (4.30-5.90); White Blood Cell Count 8.39 K/mm3 (4.00-11.30)
[2021-04-29 03:46] LABS: Anion Gap 3 mmol/L (6-16); Blood Urea Nitrogen 36 mg/dL (8-24); Bun/Creatinine Ratio 17.6 (12.0-20.0); CO2, Blood 32 mmol/L (21-32); Calcium, Blood 7.5 mg/dL (8.5-10.1); Chloride, Blood 111 mmol/L (98-108); Creatinine, Blood 2.05 mg/dL (0.60-1.20); Glomerular Filtration Rate 33 (60-); Glucose, Blood 90 mg/dL (70-99); Phosphorus, Blood 3.8 mg/dL (2.5-4.9); Potassium, Blood 4.4 mmol/L (3.5-5.5); Sodium, Blood 146 mmol/L (136-145)
--- NOTE | 2021-04-29 07:52 | NUR ---
SHIFT SUMMARY ICU TRANSFER. PT STABLE. DENIES CHEST PAIN. HAS SOME CONFUSION AND WILL CONTINUOUSLY HAVE TO BE REMINDED WHERE HE IS AND WHY. PT IS A MAX ASSIST AND ON A LIFT. PT'S SKIN CONDITION IS POOR AND PICTURES ARE IN CHART. HEALY IN PLACE AND DRAINING PROPERLY.
--- NOTE | 2021-04-29 16:58 | NUR ---
SHIFT SUMMARY PT WAS VERY DROWSY THIS AM BUT IS TALKING & SMILING W/ FAMILY THIS AFTERNOON. STILL CONFUSED & SLOW TO RESPOND BUT CAN RECOGNIZE FAMILY & TELLS STORIES THAT FAMILY REPORTS TO BE TRUE. IVF CONTINUE TO INFUSE ORDERED.
--- NOTE | 2021-04-29 21:00 | NUR ---
ASSUMED CARE PT IS ALERT AND AWAKE. YELLS OUT WITH TOUCH OR MOVEMENT OF EXTREMETIES BUT DENIES PAIN. PT DENIES CHEST PAIN OR SOB. PT IS ON 2L NC WITH SATS ABOVE 92%. VITALS ARE STABLE. HEALY IS IN PLACE AND DRAINING TO GRAVITY. CALL LIGHT WITHIN REACH AND BED ALARM IS ON. WILL CONTIUE TO MONITOR.
[2021-04-30 04:48] LABS: BASOPHILS ABSOLUTE AUTO 0.02 K/mm3 (0.00-0.23); BASOPHILS PERCENT AUTO 0 % (0-2); EOSINOPHILS ABSOLUTE AUTO 0.02 K/mm3 (0.00-0.68); EOSINOPHILS PERCENT AUTO 0 % (0-6); Hematocrit 27.3 % (37.0-53.0); Hemoglobin 7.6 g/dL (13.5-17.5); IMMATURE GRAN ABSOLUTE AUTO 0.05 K/mm3 (0.00-0.10); IMMATURE GRAN PERCENT AUTO 1 % (0-1); LYMPHOCYTES ABSOLUTE AUTO 0.46 K/mm3 (0.84-5.20); LYMPHOCYTES PERCENT AUTO 4 % (21-46); MONOCYTES ABSOLUTE AUTO 1.44 K/mm3 (0.16-1.47); MONOCYTES PERCENT AUTO 13 % (4-13); Mean Corpuscular HGB 23.6 pg (26.0-34.0); Mean Corpuscular HGB Conc 27.8 g/dL (31.5-36.5); Mean Corpuscular Volume 85 fL (80-100); Mean Platelet Volume 9.7 fL (9.1-12.4); NEUTROPHILS ABSOLUTE AUTO 9.09 K/mm3 (1.96-9.15); NEUTROPHILS PERCENT AUTO 82 % (41-73); Platelet Count 300 K/mm3 (150-400); RDW Coefficient Variation 19.6 % (11.7-14.2); RDW Standard Deviation 59.4 fL (35.1-46.3); Red Blood Cell Count 3.22 M/mm3 (4.30-5.90); White Blood Cell Count 11.08 K/mm3 (4.00-11.30)
[2021-04-30 05:11] LABS: Albumin, Blood 2.8 g/dL (3.4-5.0); Anion Gap 5 mmol/L (6-16); Blood Urea Nitrogen 31 mg/dL (8-24); Bun/Creatinine Ratio 14.7 (12.0-20.0); CO2, Blood 30 mmol/L (21-32); Calcium, Blood 8.1 mg/dL (8.5-10.1); Chloride, Blood 113 mmol/L (98-108); Creatinine, Blood 2.11 mg/dL (0.60-1.20); Glomerular Filtration Rate 32 (60-); Glucose, Blood 105 mg/dL (70-99); Magnesium, Blood 2.1 mg/dL (1.6-2.4); Phosphorus, Blood 3.5 mg/dL (2.5-4.9); Potassium, Blood 4.9 mmol/L (3.5-5.5); Sodium, Blood 148 mmol/L (136-145)
[2021-04-30 05:16] LABS: BASOPHILS PERCENT MAN 0 % (0-2); EOSINOPHILS ABSOLUTE MAN 0.11 K/mm3 (0.00-0.68); EOSINOPHILS PERCENT MAN 1 % (0-6); MONOCYTES ABSOLUTE MAN 0.77 K/mm3 (0.16-1.47); MONOCYTES PERCENT MAN 7 % (4-13); NEUTROPHILS ABSOLUTE MAN 10.19 K/mm3 (1.96-9.15); SEG NEUTROPHILS PERCENT MAN 92 % (41-73); TOTAL CELLS COUNTED 100
--- NOTE | 2021-04-30 07:36 | NUR ---
SHIFT SUMMARY PT IS ALERT AND CONFUSED. VITALS ARE STABLE AND ON 2L NC. THERE HAVE BEEN NO ACUTE CHANGES. HEALY IS PATENT AND DRAINING TO GRAVITY. PT WAS ABLE TO TAKE PO MEDICATION WITH NO PROBLEM. LATER IN THE NIGHT ICE CHIPS WERE GIVEN TO PT DUE TO BEING NPO AND THE GARBAGE PICK UP MAN REPORTED THAT HE WAS COUGHING VERY HARD AFTER. PT IS A MAX ASSIST.
[2021-04-30 12:10] LABS: ANTIGLOMERULAR BM AB 3 units (0-20)
--- NOTE | 2021-04-30 14:09 | NUR ---
TRANSFER PT WAS MEDICAL STATUS AT THE START OF SHIFT. PT IS CONFUSED AT BASELINE AND WAS VERY VOCAL THIS MORNING STATING HE WAS WANTING TO LEAVE FOR DIALYSIS AND WAS NOT UNDERSTANDING THAT WE WOULD TAKE HIM TO DIALYSIS TODAY. PT HAS HAD A HEALY IN PLACE, THE ORDER FOR IT TO BE DC'D HAS BEEN ENTERED AND THE CATHETER WILL BE DC'D UPON TRANSFER TO MEDICAL FLOOR FOLLOWING DIALYSIS. PT HAS HAD ELEVATED RR AND HR THIS MORNING AND WAS GIVEN IV LOPRESSOR AND TELE WAS REORDERED FOR THE PT. 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 PT HAS SPEECH THERAPY ORDERED BUT DUE TO HIS HIGH RR AND HR ST FELT IT WAS UNSAFE FOR HIM TO HAVE AN EVALUATION TODAY AND THEY WOULD TRY AGAIN TOMORROW. IN THE MEANTIME PT IS TO HAVE NO PO INTAKE INCLUDING MEDS. PT LEFT FOR DIALYSIS AT APPROXIMATELY 1200 AND WILL BE TRANSFERRED TO MEDICAL FLOOR AFTERWARDS. PT'S HgB WAS LOW THIS MORNING AND HE IS TO RECEIVE A UNIT OF PRBC DURING DIALYSIS.
[2021-04-30 16:10] LABS: ALBUMIN 2.8 g/dL (2.9-4.4); ALPHA-1-GLOBULIN 0.2 g/dL (0.0-0.4); ALPHA-2-GLOBULIN 0.6 g/dL (0.4-1.0); BETA GLOBULIN 0.9 g/dL (0.7-1.3); GAMMA GLOBULIN 1.1 g/dL (0.4-1.8); GLOBULIN, TOTAL 2.9 g/dL (2.2-3.9); IMMUNOGLOBULIN A, QN, SERUM 272 mg/dL (61-437); IMMUNOGLOBULIN G, QN, SERUM 1091 mg/dL (603-1613); IMMUNOGLOBULIN M, QN, SERUM 46 mg/dL (15-143); M-SPIKE 0.3 g/dL (Not Observed); PROTEIN, TOTAL, SERUM 5.7 g/dL (6.0-8.5)
--- NOTE | 2021-04-30 18:36 | NUR ---
SHIFT SUMMARY PT TRANSFERRED FROM PCU TO ROOM 354 THIS SHIFT. RECEIVED REPORT FROM RUSSEL PLUMMER. PT IS AAO TO SELF ONLY, PLEASANTLY CONFUSED AND REDIRECTABLE BY STAFF. PT REQUIRES 2P MAX ASSIST W/ BED MOBILITY AND TRANSFERS. NO C/O PAIN OR ANY DISCOMFORT NOTED. PT IS INCONTINENT OF B&B, NO C/O DYSURIA. HEALY DISCONTINUED THIS SHIFT, PT TOLERATED PROCEDURE WELL. PT CALM AND RESTING IN BED AT THIS TIME. BED AT LOWEST POSITION, W/ ALARM ON FOR SAFETY. CALL LIGHT WITHIN REACH.
--- NOTE | 2021-04-30 20:32 | NUR ---
DR Warren called for aggitation & tachycardia up to 160 per 2 tele desk monitor calls from [employer]. NKDA reviewed home med list for meds for aggitation, none seen. DR Warren to write rx to treat aggitation & tachycardia. PT reyna at shift change I have to get out of here , call the Police. PT on air bed from PCU transfer on a lift sheet. He managed to flip self facedown & removed oxygen & was dusky per COMPOUND MIXER report. Bed alarm on may need vestrestraint to prevent falls or more dangerous bed positioning?
--- NOTE | 2021-05-01 00:01 | NUR ---
DR Warren up to see PT & continued to assess pulse rate via tele monitor. PT medicated with 1 mg im haldol with mild helpful effect. ALEAH Sutton updated & she says she takes haldol too. PT NPO pending reeval by speech therapy for safe swallow.
--- NOTE | 2021-05-01 03:41 | NUR ---
PT 80 year old PCU transfer yesterday around 1600. He has been admitted on 04/26/2021 with shock & had reportedly been on a vent in ICU reportedly extubated 2 days prior. On oxygen 2 l nc repeatedly removes oxygen. NPO for aspiration pneumonia, reeval for safe swallowpending today per speech therapy. PT angry & aggitated at change of shift, attempting to climb OOB unassisted to leave this place. Bed alarm on & SR up x 4 on motorized air bed. PT does not redirect well to not attempt to climb out of bed. PT meds reviewed & he had no antianxiety or antipsychotic rx available. PT on tele monitor multiple calls when PT aggitated pulse rate up to [address] Rate ave 140 per tele electronic device monitor repot. MD Warren called & discussed tachycardia , behaviors & need to decrease aggitation, writes for 1 mg haldol IM Q 4 hrs PRN aggitation. RX given x 1 with mild helpful effect. PT on scheduled metoperol 5 mg IV & pulse down to 90's with afib. Spoke with DTLibra Sutton who says she has to take Haldol for aggitation. PT said he wanted to launch from bed so he could get up OOB. Dialysis PT had dialysis yesterday. BG Q 6 hours 12o's while NPO on D5 IV fluid at 75 ml hr. Fall precautions close observation to prevent hypoxia or fall. Medicate PRN for aggitation, offer reassurance.
[2021-05-01 05:09] LABS: Hematocrit 27.7 % (37.0-53.0); Hemoglobin 7.9 g/dL (13.5-17.5)
[2021-05-01 05:48] LABS: Albumin, Blood 2.5 g/dL (3.4-5.0); Anion Gap 1 mmol/L (6-16); Blood Urea Nitrogen 29 mg/dL (8-24); Bun/Creatinine Ratio 14.1 (12.0-20.0); CO2, Blood 34 mmol/L (21-32); Calcium, Blood 8.3 mg/dL (8.5-10.1); Chloride, Blood 107 mmol/L (98-108); Creatinine, Blood 2.05 mg/dL (0.60-1.20); Glomerular Filtration Rate 33 (60-); Glucose, Blood 138 mg/dL (70-99); Potassium, Blood 4.2 mmol/L (3.5-5.5); Sodium, Blood 142 mmol/L (136-145)
[2021-05-01 11:25] LABS: BASOPHILS ABSOLUTE AUTO 0.03 K/mm3 (0.00-0.23); BASOPHILS PERCENT AUTO 0 % (0-2); EOSINOPHILS ABSOLUTE AUTO 0.16 K/mm3 (0.00-0.68); EOSINOPHILS PERCENT AUTO 2 % (0-6); Hematocrit 28.8 % (37.0-53.0); IMMATURE GRAN ABSOLUTE AUTO 0.03 K/mm3 (0.00-0.10); IMMATURE GRAN PERCENT AUTO 0 % (0-1); LYMPHOCYTES ABSOLUTE AUTO 0.75 K/mm3 (0.84-5.20); LYMPHOCYTES PERCENT AUTO 9 % (21-46); MONOCYTES ABSOLUTE AUTO 0.87 K/mm3 (0.16-1.47); MONOCYTES PERCENT AUTO 10 % (4-13); Mean Corpuscular HGB 23.7 pg (26.0-34.0); Mean Corpuscular HGB Conc 27.8 g/dL (31.5-36.5); Mean Corpuscular Volume 86 fL (80-100); Mean Platelet Volume 10.3 fL (9.1-12.4); NEUTROPHILS ABSOLUTE AUTO 6.79 K/mm3 (1.96-9.15); NEUTROPHILS PERCENT AUTO 79 % (41-73); Platelet Count 267 K/mm3 (150-400); RDW Coefficient Variation 18.9 % (11.7-14.2); RDW Standard Deviation 58.8 fL (35.1-46.3); Red Blood Cell Count 3.37 M/mm3 (4.30-5.90); White Blood Cell Count 8.63 K/mm3 (4.00-11.30)
[2021-05-01 14:11] LABS: M-SPIKE, % Comment: % (Not Observed); PROTEIN,TOTAL,URINE 23.6 mg/dL (Not Estab.)
[2021-05-01 14:11] LABS: ANA DIRECT Negative (Negative); ANTIMYELOPEROXIDASE (MPO) ABS <9.0 U/mL (0.0-9.0); ANTIPROTEINASE 3 (PR-3) ABS <3.5 U/mL (0.0-3.5); ATYPICAL PANCA <1:20 titer (Neg:<1:20); CYTOPLASMIC (C-ANCA) <1:20 titer (Neg:<1:20); PERINUCLEAR (P-ANCA) <1:20 titer (Neg:<1:20)
--- NOTE | 2021-05-01 17:52 | NUR ---
SHIFT SUMMARY PT RESPONDS TO VERBAL STIMULI; VERY DROWSY. UPDATED KARLA WHO IS FRIEND/CAREGIVER FOR THIS PT. PT VERY HIGH ASPIRATION RISK AND FEEDER PER ST. PT WILL HAVE DIALYSIS TOMORROW. GUSTAVO POWERGLIDE DRESSING CHANGED AND MEPELEX ON THE BUTTOM INTACT. PT DENIES SOB AND ON 2L OF O2 VIA NC, SATS ABOVE 90S. BED ALARM IS ON AND CALL LIGHT WITHIN REACH
[2021-05-02 06:35] LABS: Albumin, Blood 2.3 g/dL (3.4-5.0); Anion Gap 0 mmol/L (6-16); Blood Urea Nitrogen 38 mg/dL (8-24); Bun/Creatinine Ratio 15.6 (12.0-20.0); CO2, Blood 36 mmol/L (21-32); Chloride, Blood 105 mmol/L (98-108); Creatinine, Blood 2.43 mg/dL (0.60-1.20); Glomerular Filtration Rate 27 (60-); Glucose, Blood 110 mg/dL (70-99); Magnesium, Blood 2.2 mg/dL (1.6-2.4); Phosphorus, Blood 4.6 mg/dL (2.5-4.9); Potassium, Blood 4.7 mmol/L (3.5-5.5); Sodium, Blood 141 mmol/L (136-145)
--- NOTE | 2021-05-02 12:32 | NUR ---
TO ROOM 354 FOR HEMODIALYSIS ON 80YO MALE PT OF DR PENDLETON. PT IS SLEEPY BUT ORIENTED. IJ SITE IS BURIED IN SKIN FOLDS OF PTS NECK. VERY DIFFICULT TO FLUSH OR PULL BOTH VENOUS AND ARTERIAL. SPOKE WITH Dwayne NGUYEN RN FOR POSSIBLE SOLUTIONS TO ACCESS ISSUES. RN STATED THAT HE HAD ACCESS ISSUES THE OTHER DAY. TRIED ALL SUGGESTIONS TO GET CATHETER TO RUN. VENOUS AND ARTERIAL PRESSURES 400 TO 500. UNABLE TO GET THEM TO LOWER WITH POSITIONING AND MANIPULATION OF CATHETER. BLOOD RETURNED, EXPLAINED TO PT THAT HE WOULD PROBABLY NEED A PERMACATH PLACEMENT. DR PENDLETON NOTIFIED AND CONSULT REQUESTED FOR DR PARR TO EVALUATE PATIENT TODAY IF POSSIBLE DIALYSIS IS NEEDED. DANIA ORTEGA RN CALLED FOR CONSULT. FRANK
--- NOTE | 2021-05-02 18:12 | NUR ---
PT AxOx2-3 WITH INTERMITTENT CONFUSION. DIALYSIS ATTEMPTED THIS AM, BUT PT'S IJ PORT WAS NOT ACCESSIBLE. CONSULT PLACED TO DR PARR FOR PERM CATH PLACMENT. PT CONSENTED TO PROCEDURE AND IS CURRENTLY STILL AWAITING SURGICAL TO COME TAKE HIM. PT WAS ABLE TO EAT WITH ASSIST AND WORK WITH PHYSICAL THERAPY TODAY. PT WAS MUCH MORE LETHARGIC AFTER THERAPY. BG CHANGED TO ACHS AFTER DIET RESUMED AND FLUIDS D5 REDUCED TO 50ML/HR. EX-, KARUNA, IN FOR VISIT, AND UPDATED ON PLAN OF CARE. PT HAS BEEN USING 1-2L O2 VIA NC T/O THIS SHIFT WITH SAT'S AROUND 90-95%. PT HAS POOR PERFUSION IN FINGERS. PT HAD 3 HEAVY INCONTINENT VOIDS TODAY. PROCEDURAL NURSE REPORTED AN 18 BEAT RUN OF VTACH TODAY, AND PT WAS ASYMPTOMATIC AT THE TIME. PT'S TELE RUNNING AFIB AVG 80'S OTHERWISE. PT CURRENTLY RESTING IN BED, NPO, AWAITING PROCEDURE. PT HAS CALL LIGHT IN REACH, AND DENIES ANY NEEDS AT THIS TIME.
--- NOTE | 2021-05-02 19:54 | NUR ---
PT BACK FROM ADVISOR TO COMMAND IN COMBAT PT BACK FROM ADVISOR TO COMMAND IN COMBAT. PT WITH PERMACATH TO RIGHT CHEST WALL, AREA IS CLEAN AND DRY WITH DRESSING INTACT. REPORT RECEIVED FROM OR NURSE. PT MEDICATED WITH FENTANYL, NO ANESTHESIA GIVEN PER REPORT. PT IJ REMOVED WHILE IN ADVISOR TO COMMAND IN COMBAT, AREA IS DRY. PT HAS NO COMPLAINTS OF PAIN, VITALS ARE STABLE.
--- NOTE | 2021-05-03 04:29 | NUR ---
SHIFT SUMMARY PT HAS BEEN VERY DROWSY THIS SHIFT, THIS IS NOTED FROM PRIOR SHIFTS AND IN DOCTOR'S NOTES THAT PT HAS BEEN DROWSY. PT AWAKES EASILY TO VERBAL STIMULI BUT QUICKLY FALLS BACK TO SLEEP. PT IS CONFUSED A/O TO SELF AND HAS DIFFICULTY FOLLOWING DIRECTIONS TO SAFELY SWALLOW PO MEDS WITH APPLESAUCE, THUS MEDS WERE HELD AT HS. VITAL SIGNS ARE STABLE. PT POST PERMACATH PLACEMENT TO RIGHT CHEST WALL. SITE IS CLEAN AND DRY. IVF INFUSING ORDERED. INCONTINENT, HEAVY 2-3 MAX ASSIST. PT DOES NOT ASSIST STAFF WITH TURNING OR REPOSITIONING. PT DID NOT HAVE DIALYSIS YESTERDAY. HE HAS GENERALIZED EDEMA T/O. PLAN IS FOR DIALYSIS TODAY NOW THAT PERMACATH IS IN PLACE. BED IN LOWEST POSITION, CALL LIGHT WITHIN REACH.
[2021-05-03 05:44] LABS: Hemoglobin 8.6 g/dL (13.5-17.5)
[2021-05-03 05:57] LABS: Albumin, Blood 2.3 g/dL (3.4-5.0); Anion Gap 3 mmol/L (6-16); Blood Urea Nitrogen 50 mg/dL (8-24); Bun/Creatinine Ratio 17.9 (12.0-20.0); CO2, Blood 33 mmol/L (21-32); Calcium, Blood 8.2 mg/dL (8.5-10.1); Chloride, Blood 102 mmol/L (98-108); Glomerular Filtration Rate 23 (60-); Glucose, Blood 118 mg/dL (70-99); Magnesium, Blood 2.3 mg/dL (1.6-2.4); Phosphorus, Blood 5.4 mg/dL (2.5-4.9); Sodium, Blood 138 mmol/L (136-145)
--- NOTE | 2021-05-03 09:00 | NUR ---
PT SOMEWHAT HARD TO AWAKEN. BUT DOES SO WITH SOME PROMPTING. ABLE TO TELL ME NAME, . LIVE SUTHERLIN. 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 DENIES PAIN AT THIS TIME. H/R IRREG, NO MURMER NOTED. PER TELE AFIB AT 93. LUNGS DIM T/O. OBESE. +2 EDEMA BUE AND GENERALLIZED, +1 BLE. ARMS AND LEGS PVD DISCOLORED. BT HYPO, LAST BM NOT KNOWN BY PT. VOIDS ATTENDS, INCONT. CDI AT THIS TIME. BED BOUND AT THIS TIME. BED IN LOW POSITION, ALL LITE IN REACH, BED ALARM ONFOR SAFETY
--- NOTE | 2021-05-03 14:00 | NUR ---
1400 PHYSICAL THERAPY CALLED AND STATES PT DECLINING. CALLED TO ROOM. I CAME TO ROOM. PT LETHARGIC, SOMEWHAT HARD TO AWAKEN. BUT DOES ANSWER APPROP TO , PLACE, CITY, CAREER. O2 AT 2L. OXYMETRY SHOWS 92%, HOWEVER FEET AND HANDS ARE CYANOTIC. O2 READING TAKEN ON EAR LOBE. NOT MUCH DIFFERENT FROM THIS AM. DENIES SPECIFIC PAIN, BUT STATES GENERALLY FEELS BAD. DR IN TO SEE PT. VSS. PT STILL IN AFIB AT 95. NO CHANGES ON TELE. VBG TAKEN. ORDERS FOR BIPAP TO BE PLACED. FAMILY CALLED AND PALIATIVE ON BOARD. BED IN LOW POSITION, CALL LITE IN REACH. BED ALARM ON FOR SHANITA
[2021-05-03 14:46] LABS: Bicarbonate Venous 29.7 mmol/L (24.0-30.0); PO2 Venous 36.2 mmHg (38-42); pH Blood Venous 7.22 (7.34-7.37)
--- NOTE | 2021-05-03 17:09 | NUR ---
Spoke with Caremansherry Mejía and Dr Rivas. Pt became more somnolent and less responsive today. Pt's CO2 has increased and PH decreased. Discussion with family regarding code status may be beneficial. Pt resting in bed and is on BIPAP. Pt is confused but awake. Pt's daughter Rekha and son Sukhjinder at bedside. Family reports Pt's friend/caregiver Flaco is MP[place]argie. Called and spoke with Flaco who confirms having Advanced Directive and has been appointed decision maker. Discussed Pt's wishes regarding CPR and Intubation. Flaco reports Pt discussed with him that he would not want CPR or Intubation. Flaco reports he will bring in AD. Family also reports Pt having a discussion with them that he would not want CPR or Intubation. Offered therapeutic listening and answered questions. Dr Rivas arrives and discusses further regarding Pt's condition and plan moving forward. Flaco arrives with AD. Obrained copy of AD and delivered to medical records. Palliative Care will remain available
--- NOTE | 2021-05-03 18:12 | NUR ---
PT SOME LETHARGIC TODAY. DR HAS PLACED ON BIPAP THIS LATE AFT. FAMILY IN TODAY AND CODE STATUS CHANGED TO DNR. PT MIRIAM BIPAP WELL. PT DID HAVE DIALYSIS TODAY. HE DID EAT LUNCH, BUT DID CHOKE ON SOME TEA THIS BILLY AND NOT FEELING LIKE EATIING. BACK ON BIPAP AT THIS TIME. DR MYERS DID CALL ME AND APPROVE TRANSFER TO PCU IF ANY CHANGES WARRANT NEED FOR TRANSFER. PUT IN NURSE NOTIFY. BED IN LOW POSITION, CALL LITE IN REACH, BED ALARM IN FOR SAFETY
--- NOTE | 2021-05-04 05:00 | NUR ---
BMX RIDER SUMMARY PT A/O X2, SLEPT WELL TONIGHT. CONTINUES TO BE ON CPAP AT ALL TIMES. PT OCCASIONALLY WOULD DE-SAT DOWN INTO THE 50'S AND COME BACK UP TO THE 90'S. PLEASE REFER TO RT'S DOCUMENTATION ON CPAP ADJUSTMENTS. ON CONTINOUS OXIYMETRY AND SATTING IN THE MID 90'S CURRENTLY. REPOSITIONING PROVIDED THROUGHOUT THE NIGHT. CALL LIGHT WITHIN REACH. TELE BEEN RUNNING A. FIB IN THE 70'S PER LACE BURN OUT TENDER. VSS, BED ALARM ON, WILL CONTINUE TO MONITOR.
[2021-05-04 07:43] LABS: BASOPHILS ABSOLUTE AUTO 0.02 K/mm3 (0.00-0.23); BASOPHILS PERCENT AUTO 0 % (0-2); EOSINOPHILS ABSOLUTE AUTO 0.16 K/mm3 (0.00-0.68); EOSINOPHILS PERCENT AUTO 2 % (0-6); Hematocrit 28.4 % (37.0-53.0); IMMATURE GRAN ABSOLUTE AUTO 0.02 K/mm3 (0.00-0.10); IMMATURE GRAN PERCENT AUTO 0 % (0-1); LYMPHOCYTES ABSOLUTE AUTO 0.85 K/mm3 (0.84-5.20); LYMPHOCYTES PERCENT AUTO 12 % (21-46); MONOCYTES ABSOLUTE AUTO 0.75 K/mm3 (0.16-1.47); MONOCYTES PERCENT AUTO 11 % (4-13); Mean Corpuscular HGB 24.2 pg (26.0-34.0); Mean Corpuscular HGB Conc 28.2 g/dL (31.5-36.5); Mean Corpuscular Volume 86 fL (80-100); Mean Platelet Volume 9.6 fL (9.1-12.4); NEUTROPHILS ABSOLUTE AUTO 5.05 K/mm3 (1.96-9.15); NEUTROPHILS PERCENT AUTO 74 % (41-73); NRBC ABSOLUTE 0.02 K/mm3 (0.00-0.02); NRBC Auto 0.3 /100 WBC (0.0-0.2); Platelet Count 228 K/mm3 (150-400); RDW Coefficient Variation 18.6 % (11.7-14.2); RDW Standard Deviation 57.9 fL (35.1-46.3); Red Blood Cell Count 3.31 M/mm3 (4.30-5.90); White Blood Cell Count 6.85 K/mm3 (4.00-11.30)
[2021-05-04 08:05] LABS: Albumin, Blood 2.3 g/dL (3.4-5.0); Anion Gap 1 mmol/L (6-16); Blood Urea Nitrogen 38 mg/dL (8-24); Bun/Creatinine Ratio 17.8 (12.0-20.0); CO2, Blood 35 mmol/L (21-32); Calcium, Blood 8.2 mg/dL (8.5-10.1); Chloride, Blood 103 mmol/L (98-108); Creatinine, Blood 2.13 mg/dL (0.60-1.20); Glomerular Filtration Rate 30 (60-); Glucose, Blood 110 mg/dL (70-99); Phosphorus, Blood 2.9 mg/dL (2.5-4.9); Potassium, Blood 4.2 mmol/L (3.5-5.5); Sodium, Blood 139 mmol/L (136-145)
--- NOTE | 2021-05-04 12:21 | NUR ---
Palliative care visit: Brendon woke when this chart writer called his name and entered his room. He is not currently on bipap. He smiles easily and denies any needs at this time. He has no concerns. He visited with me for a couple of minutes and then feel asleep during the conversation. Will allow him to rest and PC will continue to follow for advanced care planning.
--- NOTE | 2021-05-04 18:21 | NUR ---
SHIFT SUMMARY. A&OX2-3, PLEASANT AND COOPERATIVE WITH CARE. PT IS BEDREST, LIFT FOR TRANSFERS. PT DENIES PAIN, SOB, N/V. GOOD MEAL INTAKE FOR BREAKFAST AND DINNER, PT SLEPT THROUGH LUNCH IT ARRIVED AFTER DIALYSIS AND HE REPORTED NO APPETITE. PT REPOSITIONED THROUGHOUT SHIFT. NO URINE OUTPUT. NO OTHER CHANGES OR CONCERNS.
[2021-05-05 04:45] LABS: Hemoglobin 7.8 g/dL (13.5-17.5)
[2021-05-05 05:09] LABS: Albumin, Blood 2.3 g/dL (3.4-5.0); Anion Gap 2 mmol/L (6-16); Blood Urea Nitrogen 38 mg/dL (8-24); Bun/Creatinine Ratio 20.2 (12.0-20.0); CO2, Blood 35 mmol/L (21-32); Calcium, Blood 8.1 mg/dL (8.5-10.1); Chloride, Blood 99 mmol/L (98-108); Creatinine, Blood 1.88 mg/dL (0.60-1.20); Glomerular Filtration Rate 35 (60-); Glucose, Blood 103 mg/dL (70-99); Magnesium, Blood 2.1 mg/dL (1.6-2.4); Phosphorus, Blood 3.4 mg/dL (2.5-4.9); Potassium, Blood 4.2 mmol/L (3.5-5.5); Sodium, Blood 136 mmol/L (136-145)
--- NOTE | 2021-05-05 06:51 | NUR ---
SUMMARY NO NEW ISSUES NOTED. PT SLEPT T/O SHIFT W/O ISSUE. PT CURRENTLY SLEEPING IN NO DISTRESS. CALL LIGHT IN REACH.
--- NOTE | 2021-05-05 18:24 | NUR ---
SHIFT SUMMARY. A&OX2, PLEASANT AND COOPERATIVE WITH CARE. PT DENIES PAIN, N/V, SOB. CONTINUES WITH 3L O2 NC, DESATS WHEN HOB LOWERED PAST 35 DEGREES. PT GIVEN SUPPOSITORY, PT HAD AZUL BM A FEW HOURS AFTERWARDS, PT DID HAVE SCANT BLEEDING FROM HEMRROIDS SECONDARY TO STOOL BEING VERY HARD. NO DIALYSIS TODAY. NO OTHER CHANGES OR CONCERNS.
[2021-05-06 05:20] LABS: BASOPHILS ABSOLUTE AUTO 0.02 K/mm3 (0.00-0.23); BASOPHILS PERCENT AUTO 0 % (0-2); EOSINOPHILS ABSOLUTE AUTO 0.18 K/mm3 (0.00-0.68); EOSINOPHILS PERCENT AUTO 2 % (0-6); Hematocrit 29.1 % (37.0-53.0); Hemoglobin 8.1 g/dL (13.5-17.5); IMMATURE GRAN ABSOLUTE AUTO 0.04 K/mm3 (0.00-0.10); IMMATURE GRAN PERCENT AUTO 0 % (0-1); LYMPHOCYTES PERCENT AUTO 9 % (21-46); MONOCYTES ABSOLUTE AUTO 1.02 K/mm3 (0.16-1.47); MONOCYTES PERCENT AUTO 11 % (4-13); Mean Corpuscular HGB 23.5 pg (26.0-34.0); Mean Corpuscular HGB Conc 27.8 g/dL (31.5-36.5); Mean Corpuscular Volume 85 fL (80-100); Mean Platelet Volume 9.5 fL (9.1-12.4); NEUTROPHILS ABSOLUTE AUTO 7.03 K/mm3 (1.96-9.15); NEUTROPHILS PERCENT AUTO 77 % (41-73); Platelet Count 256 K/mm3 (150-400); RDW Coefficient Variation 18.1 % (11.7-14.2); RDW Standard Deviation 55.8 fL (35.1-46.3); Red Blood Cell Count 3.44 M/mm3 (4.30-5.90); White Blood Cell Count 9.09 K/mm3 (4.00-11.30)
[2021-05-06 05:40] LABS: Albumin, Blood 2.4 g/dL (3.4-5.0); Anion Gap 1 mmol/L (6-16); Blood Urea Nitrogen 47 mg/dL (8-24); Bun/Creatinine Ratio 27.2 (12.0-20.0); CO2, Blood 34 mmol/L (21-32); Calcium, Blood 8.3 mg/dL (8.5-10.1); Chloride, Blood 100 mmol/L (98-108); Creatinine, Blood 1.73 mg/dL (0.60-1.20); Glomerular Filtration Rate 38 (60-); Glucose, Blood 113 mg/dL (70-99); Magnesium, Blood 2.2 mg/dL (1.6-2.4); Phosphorus, Blood 3.7 mg/dL (2.5-4.9); Potassium, Blood 4.5 mmol/L (3.5-5.5); Sodium, Blood 135 mmol/L (136-145)
--- NOTE | 2021-05-06 06:42 | NUR ---
SUMMARY PT HAS BEEN SATURATING WELL T/O SHIFT. PT HAD NO PERIODS OF SOB. PT HAS NOTED DIFFICULTY SWALLOWING. PT CHOKED AND COUGHED ON PLAIN APPLESAUCE. PT ALSO HAD DIFFICULTY W/ THIN LIQUIDS. PT WOULD BENEFIT FROM ST EVAL. PT SLEPT WELL T/O SHIFT. PT CURRENTLY SLEEPING AND IN NO DISTRESS. CALL LIGHT IN REACH. BED ALARM ON.
[2021-05-06 14:21] LABS: PCO2 Arterial 68.2 mmHg (35-45); PO2 Arterial 112 mmHg (80-100); pH Blood Arterial 7.32 (7.35-7.45)
--- NOTE | 2021-05-06 17:48 | NUR ---
SHIFT SUMMARY PT IS AO TO SELF. PT INCREASINGLY LETHARGIC THIS AM BUT WOKE TO VERBAL STIMULATION. PT PLACED ON BIPAP THIS SHIFT FOR INCREASINGLY SHALLOW RESPIRATIONS. PT NOT SAFE FOR PO INTAKE AND ST DETERMINED PT SHOULD BE NPO STATUS FOR THE TIME BEING. PT IS CURRENTLY MORE AWAKE AND ON 3 L 02 VIA NC. PT DAUGHTER IN TODAY. PT TELE REMAINS AFIB IN THE 70S. PT HAD ABG DRAWN TWICE THIS SHIFT. PT IS IN BED, ALARM ON, CALL LIGHT IN REACH.
[2021-05-06 17:58] LABS: PCO2 Arterial 68.2 mmHg (35-45); PO2 Arterial 96.8 mmHg (80-100); pH Blood Arterial 7.32 (7.35-7.45)
--- NOTE | 2021-05-06 22:48 | NUR ---
2240 TELE CALLED AND INFORMED OF 8 BEAT RUN OF V-TACH. PT ASSESSED AND PT DENIES CX PAIN OR INCREASED SOB. PT VSS. WCTM.
[2021-05-07 07:31] LABS: Albumin, Blood 2.3 g/dL (3.4-5.0); Anion Gap 2 mmol/L (6-16); Blood Urea Nitrogen 41 mg/dL (8-24); Bun/Creatinine Ratio 27.7 (12.0-20.0); CO2, Blood 33 mmol/L (21-32); Calcium, Blood 8.6 mg/dL (8.5-10.1); Chloride, Blood 102 mmol/L (98-108); Creatinine, Blood 1.48 mg/dL (0.60-1.20); Glomerular Filtration Rate 46 (60-); Glucose, Blood 140 mg/dL (70-99); Magnesium, Blood 2.2 mg/dL (1.6-2.4); Phosphorus, Blood 2.3 mg/dL (2.5-4.9); Potassium, Blood 4.5 mmol/L (3.5-5.5); Sodium, Blood 137 mmol/L (136-145)
[2021-05-07 09:34] LABS: PCO2 Arterial 63.4 mmHg (35-45); PO2 Arterial 76.2 mmHg (80-100); pH Blood Arterial 7.35 (7.35-7.45)
--- NOTE | 2021-05-07 17:37 | NUR ---
Spoke with ST Moscoso earlier this AM and discussed case. Pt appears to have poor insight to his current condition. Pt may need 24 hour caregiving/supervision retirement. Pt resting in bed upon arrival. Pt is A&OX3. Pt unable to verbalize appropriate reason for hospital stay. Pt denies pain at this time. Pt appears withdrawn and asks if this RN is Dr Rivas. Pt reports no concerns at this time. Palliative Care will F/U with Pt's caregiver/MANPREET Sam for advanced care planning.
--- NOTE | 2021-05-07 18:17 | NUR ---
PT IS A/OX3, PLEASANT AND COOPERATIVE, FORGETFULL AT TIMES. THE PT APPEARED TO BE BREATHING EASILY ON 2.5L/MIN O2 T/O THE DAY, OFF OF BIPAP, THE PT WAS ALERT ENOUGH TO RESUME A MECHANICAL SOFT DIET, THE PT WAS ABLE TO CONVERSE WITH HIS FRIEND THIS AFTERNOON. THE PT WORKED WITH THE OCCUPATIONAL THERAPIST AND WAS ABLE TO SIT UP ON THE SIDE OF THE BED, THE PT DENIED ANY PAIN T/O THE DAY, CALL LIGHT IN REACH, WILL CONTINUE TO MONITOR AND ASSESS FOR CHANGES
--- NOTE | 2021-05-08 04:18 | NUR ---
SHIFT SUMMARY PT PLEASANTLY CONFUSED. UNCLEAR TO HOW CLOSE TO PT'S BASELINE HE IS. AWAKE MUCH OF THE EVENING. ONLY SLEEPING FOR SHORT AMOUNTS OFF AND ON. REMAINED ON 2.5 L VIA NC WITH O2 SATS IN THE LOW TO MID 90'S. PT HEAVILY INCONTINENT. ATTEMPTED CONDOM CATH BUT IT WOULD NOT STAY ON. ATTENDS IN PLACE. REDNESS TO GROIN. POWDER APPLIED. PT WITH SOME EDEMA THROUGHOUT. VITAL SIGNS STABLE. NO ACUTE CHANGES THIS EVENING. ABG ORDERED FOR THIS AM TO CHECK ON CO2 LEVELS.
[2021-05-08 04:57] LABS: Hematocrit 26.8 % (37.0-53.0); Hemoglobin 7.8 g/dL (13.5-17.5)
[2021-05-08 05:20] LABS: Albumin, Blood 2.3 g/dL (3.4-5.0); Anion Gap 2 mmol/L (6-16); Blood Urea Nitrogen 38 mg/dL (8-24); Bun/Creatinine Ratio 23.9 (12.0-20.0); CO2, Blood 35 mmol/L (21-32); Calcium, Blood 8.7 mg/dL (8.5-10.1); Chloride, Blood 101 mmol/L (98-108); Creatinine, Blood 1.59 mg/dL (0.60-1.20); Glomerular Filtration Rate 42 (60-); Glucose, Blood 142 mg/dL (70-99); Magnesium, Blood 2.3 mg/dL (1.6-2.4); Potassium, Blood 4.7 mmol/L (3.5-5.5); Sodium, Blood 138 mmol/L (136-145)
[2021-05-08 07:26] LABS: PCO2 Arterial 56.4 mmHg (35-45); PO2 Arterial 59.8 mmHg (80-100)
--- NOTE | 2021-05-08 08:53 | NUR ---
Supportive visit this AM. Pt eating breakfast with the assistance of JUAN RAMON Davis. Occasional coughing noted. Pt instructed to tuch chin when swallowing. Pt appears more alert today. Ended visit to allow Pt to continue with his breakfast. Called and spoke with Pt's friend/caregiver Flaco. Provided update and engaged in therapeutic discussion regarding planning for the future. Discussed the possibility of Pt needing 24 hour care and supervision once he returns home. Provided examples of care and supervision Pt may need due to his poor insight. Offered therapeutic listening and answered questions. Flaco also appears to struggle with understanding of Pt's condition. Flaco does report being able to provide care and supervision 24 hours a day. Palliative Care will remain available.
--- NOTE | 2021-05-08 18:20 | NUR ---
PT IS A/OX3 , ORIENTED TO PERSON PLACE AND PRESIDENT, ABLE TO RECOGNIZE MEMBERS OF THE STAFF, PLEASANT AND COOPERATIVE, THE PT IS ON O2 @ 2.5L/MIN, THE PT DENIED ANY PAIN, THE PT WAS ASSISTED WITH MEALS, THE PT EXPRESSED AN INTREST IN GETTING UP WITH PHYSICAL THERAPY TODAY. PT WAS REPOSTIONED T/O THE DAY, CALL LIGHT IN REACH, WILL CONTINUE TO MONITOR AND ASSESS FOR CHANGES
--- NOTE | 2021-05-09 04:49 | NUR ---
RESIDENTIAL SUPPORT WORKER SUMMARY PT A/O X 1-2. SLEPT WELL TONIGHT. DENIES PAIN, SOB, NAUSEA. CONTINUES TO BE ON 2 AND A HALF LITERS 02 MAINTAINING SATS AT 90% AND ABOVE. REPOSITIONING PROVIDED THROUGHOUT THE NIGHT. INCONTIENT WITH ATTENDS IN PLACE. VITALS STABLE. NO ACUTE CHANGES. BED ALARM ON, CALL LIGHT WITHIN REACH. WILL CONTINUE TO MONITOR.
[2021-05-09 05:47] LABS: Hemoglobin 7.4 g/dL (13.5-17.5)
[2021-05-09 06:05] LABS: Albumin, Blood 2.1 g/dL (3.4-5.0); Anion Gap 2 mmol/L (6-16); Blood Urea Nitrogen 36 mg/dL (8-24); Bun/Creatinine Ratio 25.2 (12.0-20.0); CO2, Blood 30 mmol/L (21-32); Chloride, Blood 106 mmol/L (98-108); Creatinine, Blood 1.43 mg/dL (0.60-1.20); Glomerular Filtration Rate 48 (60-); Glucose, Blood 136 mg/dL (70-99); Phosphorus, Blood 3.1 mg/dL (2.5-4.9); Potassium, Blood 4.5 mmol/L (3.5-5.5); Sodium, Blood 138 mmol/L (136-145)
[2021-05-09 07:27] LABS: PCO2 Arterial 65.1 mmHg (35-45); PO2 Arterial 67.7 mmHg (80-100)
[2021-05-09 08:45] LABS: pH Blood Arterial 7.33 (7.35-7.45)
[2021-05-09 12:02] LABS: SARS-Cov-2 (COVID-19) PCR, MMC NEGATIVE (NEGATIVE)
--- NOTE | 2021-05-09 15:54 | NUR ---
DISCHARGE SUMMARY PT DISCHARGE TO FACILITY AT 1540 THIS SHIFT. PT TRANSFERRED TO [facility]. TRANSPORTED VIA AMBULANCE SERVICES. PT AAO TO SELF AND SITUATION. PLEASANTLY CONFUSED AT TIMES, CAPITAN GRANDE BAND, REDIRECTABLE. PT VERBALIZED UNDERSTANDING OF D/C ORDERS. NO C/O ANY PAIN OR ANY DISCOMFORT, NO ISSUES OR CONCERNS NOTED PRIOR TO DISCHARGE. REPORT GIVEN TO RUSSEL VERDUZCO AT [facility]. POWERGLIDE AND TELE DISCONTINUED PRIOR TO DISCHARGE.
== END 2021-05-09 15:45 | DRG 673 ==
LOC: ER 19:25 → MEDS 21:49 → ICUW 21:49 → PCU 04-29 03:44 → MEDS 04-30 12:00
PROVIDERS: Emergency Medicine; Family Medicine; Internal Medicine; Internal Medicine Critical Care Medicine; Internal Medicine Nephrology; ADMIT Family Medicine
PROC: 30233N1 Transfusion of Nonautologous Red Blood Cells into Peripheral Vein, Percutaneous Approach (ICD-10-PCS; 2021-04-26)
PROC: 02HV33Z Insertion of Infusion Device into Superior Vena Cava, Percutaneous Approach (ICD-10-PCS; 2021-04-27)
PROC: 5A1D70Z Performance of Urinary Filtration, Intermittent, Less than 6 Hours Per Day (ICD-10-PCS; 2021-04-27)
PROC: 0JH63XZ Insertion of Tunneled Vascular Access Device into Chest Subcutaneous Tissue and Fascia, Percutaneous Approach (ICD-10-PCS; principal; 2021-05-02)
PROC: 02HV33Z Insertion of Infusion Device into Superior Vena Cava, Percutaneous Approach (ICD-10-PCS; 2021-05-02)
PROC: B518YZA Fluoroscopy of Superior Vena Cava using Other Contrast, Guidance (ICD-10-PCS; 2021-05-02)
PROC: B548ZZA Ultrasonography of Superior Vena Cava, Guidance (ICD-10-PCS; 2021-05-02)
PROC: 5A09457 Assistance with Respiratory Ventilation, 24-96 Consecutive Hours, Continuous Positive Airway Pressure (ICD-10-PCS; 2021-05-07)
DX: N17.0 Acute kidney failure with tubular necrosis (principal); J69.0 Pneumonitis due to inhalation of food and vomit; R57.1 Hypovolemic shock; G92 Toxic encephalopathy; J96.21 Acute and chronic respiratory failure with hypoxia; D62 Acute posthemorrhagic anemia; E87.2 Acidosis; I12.0 Hypertensive chronic kidney disease with stage 5 chronic kidney disease or end stage renal disease; E87.0 Hyperosmolality and hypernatremia; I47.2 Ventricular tachycardia; E87.5 Hyperkalemia; N18.6 End stage renal disease; N18.4 Chronic kidney disease, stage 4 (severe); E11.22 Type 2 diabetes mellitus with diabetic chronic kidney disease; I48.91 Unspecified atrial fibrillation; E83.39 Other disorders of phosphorus metabolism; Z20.822 Contact with and (suspected) exposure to COVID-19; E78.5 Hyperlipidemia, unspecified; Z98.49 Cataract extraction status, unspecified eye; Z96.653 Presence of artificial knee joint, bilateral; Z98.890 Other specified postprocedural states; Z79.899 Other long term (current) drug therapy; E66.9 Obesity, unspecified; D63.1 Anemia in chronic kidney disease; N25.81 Secondary hyperparathyroidism of renal origin; G47.33 Obstructive sleep apnea (adult) (pediatric); Z68.39 Body mass index [BMI] 39.0-39.9, adult
CPT/HCPCS: 36415; 36430; 36558; 36600; 51702; 70450; 71045; 76770; 76937; 77001; 80053; 80069; 80074; 81001; 81050; 82272; 82550; 82565; 82607; 82728; 82746; 82784; 82803; 82947; 83516; 83520; 83540; 83550; 83605; 83735; 84100; 84132; 84145; 84156; 84165; 84166; 84484; 84550; 85014; 85018; 85025; 86038; 86256; 86317; 86334; 86335; 86850; 86900; 86901; 86923; 87040; 87086; 92526; 92610; 93005; 93010; 93306; 94640; 94660; 94667; 94668; 94760; 94762; 96365-59; 96375-59; 97110; 97162; 97165; 97530; 97535; 99152; 99285-25; A9270; C1750; C1752; C1769; C1894; C9113; G0103; J0295; J0610; J0881; J1610; J1630; J1644; J1650; J1815; J2250; J3010; J7030; J7040; J7050; J7060; J7070; P9016; P9046; U0004

== ENCOUNTER → 2021-05-23 | Outpatient (CLI) | payer OTHER ==
[~2021-05-23] MED LIST changes: +ALLO100 PO; +Aspir 8181 MG PO; +BACITRACIN ZIN1 EAC1 TOP; +DULCOLAX400 MG/5 M PO; +FEBU40TA PO; +FERSU300 PO; +FOLI1 PO; +FURO20 PO; +GLIP5ER PO; +LISI20 PO; +METO25 PO; +OMEGA-3 FISH O1 EAC6 PO; +POTA8 PO; +Vitamin B-121000 MCG PO
[2021-05-23 13:09] LABS: Hematocrit 27.3 % (37.0-53.0); Hemoglobin 7.5 g/dL (13.5-17.5); Mean Corpuscular HGB Conc 27.5 g/dL (31.5-36.5); Mean Corpuscular Volume 84 fL (80-100); Mean Platelet Volume 10.2 fL (9.1-12.4); Platelet Count 493 K/mm3 (150-400); RDW Coefficient Variation 18.5 % (11.7-14.2); RDW Standard Deviation 56.6 fL (35.1-46.3); Red Blood Cell Count 3.26 M/mm3 (4.30-5.90); White Blood Cell Count 9.04 K/mm3 (4.00-11.30)
== END ==
LOC: LAB SHORT 12:14 → LAB 12:14
PROVIDERS: Internal Medicine
DX: E11.9 Type 2 diabetes mellitus without complications (principal); D64.9 Anemia, unspecified
CPT/HCPCS: 83036; 85027

== ENCOUNTER 2021-06-08 02:00 | Inpatient (IN) | payer MEDICARE, OTHER ==
[~2021-06-08] VITALS: Ht 170.2 cm; Wt 113.9 kg
[~2021-06-08 02:00] MED LIST changes: -ALLO100 PO; -BACITRACIN ZIN1 EAC1 TOP; -DULCOLAX400 MG/5 M PO; -FERSU300 PO; -FOLI1 PO; -Vitamin B-121000 MCG PO
[2021-06-08 02:25] LABS: BASOPHILS ABSOLUTE AUTO 0.05 K/mm3 (0.00-0.23); BASOPHILS PERCENT AUTO 1 % (0-2); EOSINOPHILS ABSOLUTE AUTO 0.57 K/mm3 (0.00-0.68); EOSINOPHILS PERCENT AUTO 6 % (0-6); Hemoglobin 7.5 g/dL (13.5-17.5); IMMATURE GRAN ABSOLUTE AUTO 0.03 K/mm3 (0.00-0.10); IMMATURE GRAN PERCENT AUTO 0 % (0-1); LYMPHOCYTES ABSOLUTE AUTO 1.11 K/mm3 (0.84-5.20); LYMPHOCYTES PERCENT AUTO 12 % (21-46); MONOCYTES ABSOLUTE AUTO 0.75 K/mm3 (0.16-1.47); MONOCYTES PERCENT AUTO 8 % (4-13); Mean Corpuscular HGB 22.3 pg (26.0-34.0); Mean Corpuscular HGB Conc 27.8 g/dL (31.5-36.5); Mean Corpuscular Volume 80 fL (80-100); Mean Platelet Volume 9.1 fL (9.1-12.4); NEUTROPHILS ABSOLUTE AUTO 6.81 K/mm3 (1.96-9.15); NEUTROPHILS PERCENT AUTO 73 % (41-73); Platelet Count 363 K/mm3 (150-400); RDW Coefficient Variation 19.4 % (11.7-14.2); RDW Standard Deviation 56.7 fL (35.1-46.3); Red Blood Cell Count 3.37 M/mm3 (4.30-5.90); White Blood Cell Count 9.32 K/mm3 (4.00-11.30)
[2021-06-08 02:42] LABS: Albumin, Blood 2.6 g/dL (3.4-5.0); Albumin/Globulin Ratio 0.6 (0.8-1.8); Bilirubin, Total 0.4 mg/dL (0.1-1.0); Bun/Creatinine Ratio 33.1 (12.0-20.0); Calcium, Blood 8.3 mg/dL (8.5-10.1); Creatinine, Blood 2.36 mg/dL (0.60-1.20); Globulin, Blood 4.7 g/dL (2.2-4.0); Potassium, Blood 5.6 mmol/L (3.5-5.5); Total Protein, Blood 7.3 g/dL (6.4-8.2)
[2021-06-08] MEDS ORDERED: BACITRACIN ZIN1 EAC1 TOP (04:49)
[2021-06-08 13:00] LABS: Hematocrit 27.7 % (37.0-53.0); Hemoglobin 7.6 g/dL (13.5-17.5)
[2021-06-08 13:01] LABS: SARS-Cov-2 (COVID-19) PCR, MMC NEGATIVE (NEGATIVE)
--- NOTE | 2021-06-08 18:20 | NUR ---
SHIFT SUMMARY PT A&O FORGETFUL OF DATE, KNOWS YEAR AND PRESIDENT. PT IS VERY HARD OF HEARING AND BLIND. REPOSITIONED Q2H AND PRN IN BED X2 STAFF ASSIST. ASSISTED WITH URINAL, ATTENDS IN PLACE. PHOTOS TAKEN OF ABRASION ON LEFT BUTTOCK ABD L FA. NO COMPLAINTS. NO ACUTE CHANGES THIS SHIFT. PLAN: PT NEEDS PLACEMENT
[2021-06-09 05:12] LABS: BASOPHILS ABSOLUTE AUTO 0.04 K/mm3 (0.00-0.23); BASOPHILS PERCENT AUTO 1 % (0-2); EOSINOPHILS ABSOLUTE AUTO 0.57 K/mm3 (0.00-0.68); EOSINOPHILS PERCENT AUTO 7 % (0-6); Hematocrit 27.1 % (37.0-53.0); Hemoglobin 7.3 g/dL (13.5-17.5); IMMATURE GRAN ABSOLUTE AUTO 0.02 K/mm3 (0.00-0.10); IMMATURE GRAN PERCENT AUTO 0 % (0-1); LYMPHOCYTES ABSOLUTE AUTO 0.77 K/mm3 (0.84-5.20); LYMPHOCYTES PERCENT AUTO 9 % (21-46); MONOCYTES ABSOLUTE AUTO 0.71 K/mm3 (0.16-1.47); MONOCYTES PERCENT AUTO 8 % (4-13); Mean Corpuscular HGB 22.4 pg (26.0-34.0); Mean Corpuscular HGB Conc 26.9 g/dL (31.5-36.5); Mean Corpuscular Volume 83 fL (80-100); Mean Platelet Volume 9.3 fL (9.1-12.4); NEUTROPHILS ABSOLUTE AUTO 6.31 K/mm3 (1.96-9.15); NEUTROPHILS PERCENT AUTO 75 % (41-73); Platelet Count 360 K/mm3 (150-400); RDW Coefficient Variation 19.2 % (11.7-14.2); RDW Standard Deviation 57.5 fL (35.1-46.3); Red Blood Cell Count 3.26 M/mm3 (4.30-5.90); White Blood Cell Count 8.42 K/mm3 (4.00-11.30)
--- NOTE | 2021-06-09 05:46 | NUR ---
Up in chair most of shift. Slighty confuse to time of day, requesting dinner at [place]. Re orient easily. Some discomfort when moving legs.
[2021-06-09 05:57] LABS: Bun/Creatinine Ratio 34.3 (12.0-20.0); Calcium, Blood 8.3 mg/dL (8.5-10.1); Creatinine, Blood 2.16 mg/dL (0.60-1.20); Potassium, Blood 6.1 mmol/L (3.5-5.5)
[2021-06-09 11:03] LABS: Hematocrit 26.3 % (37.0-53.0); Hemoglobin 7.1 g/dL (13.5-17.5)
[2021-06-09 16:02] LABS: Hematocrit 26.8 % (37.0-53.0); Hemoglobin 7.3 g/dL (13.5-17.5)
--- NOTE | 2021-06-09 17:40 | NUR ---
SHIFT SUMMARY PT IS AO AND PLEASANT. PT DENIES N/V, SOB, PAIN. PT HAD RENAL US TODAY. PT IS BEDREST/2 ASSIST TO CHAIR. PT APPETITE IS GOOD. PT DID NOT HAVE VISITORS TODAY. PLAN IS FOR PLACEMENT DUE TO CAREGIVER HAVING SURGERY. PT IS IN BED, CALL LIGHT IN REACH, LOW POSITION.
[2021-06-10 04:33] LABS: BASOPHILS ABSOLUTE AUTO 0.03 K/mm3 (0.00-0.23); BASOPHILS PERCENT AUTO 0 % (0-2); EOSINOPHILS ABSOLUTE AUTO 0.56 K/mm3 (0.00-0.68); EOSINOPHILS PERCENT AUTO 7 % (0-6); Hematocrit 25.7 % (37.0-53.0); IMMATURE GRAN ABSOLUTE AUTO 0.02 K/mm3 (0.00-0.10); IMMATURE GRAN PERCENT AUTO 0 % (0-1); LYMPHOCYTES ABSOLUTE AUTO 0.81 K/mm3 (0.84-5.20); LYMPHOCYTES PERCENT AUTO 11 % (21-46); MONOCYTES ABSOLUTE AUTO 0.74 K/mm3 (0.16-1.47); MONOCYTES PERCENT AUTO 10 % (4-13); Mean Corpuscular HGB 22.4 pg (26.0-34.0); Mean Corpuscular HGB Conc 27.2 g/dL (31.5-36.5); Mean Corpuscular Volume 82 fL (80-100); Mean Platelet Volume 9.3 fL (9.1-12.4); NEUTROPHILS ABSOLUTE AUTO 5.45 K/mm3 (1.96-9.15); NEUTROPHILS PERCENT AUTO 72 % (41-73); Platelet Count 349 K/mm3 (150-400); RDW Standard Deviation 57.3 fL (35.1-46.3); Red Blood Cell Count 3.12 M/mm3 (4.30-5.90); White Blood Cell Count 7.61 K/mm3 (4.00-11.30)
[2021-06-10 04:51] LABS: Albumin, Blood 2.4 g/dL (3.4-5.0); Albumin/Globulin Ratio 0.6 (0.8-1.8); Bilirubin, Direct 0.1 mg/dL (0.0-0.3); Bilirubin, Indirect 0.2 mg/dL (0.1-0.7); Bilirubin, Total 0.3 mg/dL (0.1-1.0); Bun/Creatinine Ratio 33.7 (12.0-20.0); Calcium, Blood 8.2 mg/dL (8.5-10.1); Creatinine, Blood 2.05 mg/dL (0.60-1.20); Globulin, Blood 4.2 g/dL (2.2-4.0); Magnesium, Blood 1.9 mg/dL (1.6-2.4); Phosphorus, Blood 5.8 mg/dL (2.5-4.9); Potassium, Blood 5.5 mmol/L (3.5-5.5); Total Protein, Blood 6.6 g/dL (6.4-8.2); Uric Acid, Blood 3.7 mg/dL (3.5-7.2)
--- NOTE | 2021-06-10 06:16 | NUR ---
SHIFT SUMMARY: PT IS ALERT WITH MILD CONFUSION. PT IS CALM AND COOPERATIVE WITH CARE. PT DOES NOT USE HIS CALL LIGHT APPROPRIATELY. PT DENIES PAIN, NAUSEA, VOMITING, AND SOB. PT SLEPT MUCH OF THE NIGHT WHEN NOT DISTURBED. NO ACUTE CHANGES. WILL REPORT TO DAY NURSE.
[2021-06-10 12:53] LABS: Hematocrit 27.3 % (37.0-53.0); Hemoglobin 7.4 g/dL (13.5-17.5)
--- NOTE | 2021-06-10 16:17 | NUR ---
SHIFT SUMMARY/TRASFER OF CARE PT SLEPT MOST OF THE SHIFT AND THIS RN WAS UNABLE TO GIVE PT HIS MEDICATION OR BREAKFAST DUE TO NOT BEING AWAKE ENOUGH. PT MORE AWAKE THIS AFTERNOON. UP TO CHAIR FOR LUNCH WITH PT ASSISTANCE. PT CALLING OUT OFTEN NOW. PT HAD GOOD APPETITE FOR LUNCH. NO ACUTE CHANGES THIS SHIFT. REPORT GIVEN TO RUSSEL BROWN TO ASSUME CARE. CALL LIGHT IN REACH.
--- NOTE | 2021-06-11 04:18 | NUR ---
06/10/211958 PT LYING IN BED, DENIES ANY DISCOMFORT AT THIS TIME. TELE AFIB. ON 2L O2 NC AT 90%, DENIES SOB. NO OTHER APPARENT SIGNS OF DISTRESS. CALL LIGHT IS IN REACH.
--- NOTE | 2021-06-11 04:19 | NUR ---
0200 PT LYING IN BED, EYES CLOSED, APPEARS TO BE RESTING. BREATHING IS EVEN, UNLABORED. NO APPARENT SIGNS OF DISTRESS. CALL LIGHT IS IN REACH.
--- NOTE | 2021-06-11 04:19 | NUR ---
06/10/21 2200 PT LYING IN BED, REQUESTED ICE CREAM. NO APPARENT SIGNS OF DISTRESS. CALL LIGHT IS IN REACH.
--- NOTE | 2021-06-11 04:19 | NUR ---
0000 PT LYING IN BED, EYES CLOSED, APPEARS TO BE RESTING. BREATHING IS EVEN, UNLABORED. NO APPARENT SIGNS OF DISTRESS. CALL LIGHT IS IN REACH.
--- NOTE | 2021-06-11 04:20 | NUR ---
0330 PT LYING IN BED, EYES CLOSED, APPEARS TO BE RESTING. WAKES EASILY TO VERBAL STIMULI. NO APPARENT SIGNS OF DISTRESS. CALL LIGHT IS IN REACH.
--- NOTE | 2021-06-11 04:20 | NUR ---
PT IS AAO X 4, ON 2L NC O2 AT 97%, DENIES SOB. TELE AFIB. LAST BS WAS 120.
[2021-06-11 05:29] LABS: Hematocrit 26.1 % (37.0-53.0)
--- NOTE | 2021-06-11 05:36 | NUR ---
PT LYING IN BED, AWAKE, NO APPARENT SIGNS OF DISTRESS. CALL LIGHT IS IN REACH. NO OTHER CHANGES THIS SHIFT.
[2021-06-11 05:49] LABS: Albumin, Blood 2.3 g/dL (3.4-5.0); Anion Gap 5 mmol/L (6-16); Blood Urea Nitrogen 67 mg/dL (8-24); Bun/Creatinine Ratio 34.4 (12.0-20.0); CO2, Blood 27 mmol/L (21-32); Calcium, Blood 8.2 mg/dL (8.5-10.1); Chloride, Blood 110 mmol/L (98-108); Creatinine, Blood 1.95 mg/dL (0.60-1.20); Glomerular Filtration Rate 33 (60-); Glucose, Blood 116 mg/dL (70-99); Potassium, Blood 5.4 mmol/L (3.5-5.5); Sodium, Blood 142 mmol/L (136-145)
[2021-06-11 12:52] LABS: Hemoglobin 7.1 g/dL (13.5-17.5)
--- NOTE | 2021-06-11 19:38 | NUR ---
SHIFT SUMMARY PT HAS BEEN MORE AWAKE THIS SHIFT, YELLING A LOT. PT MORE ORIENTED THIS AFTERNOON. PT HAS GOOD APPETITE. NO ACUTE CHANGES THIS SHIFT. REPORT GIVEN TO ROSLYN GOODE. CALL LIGHT IN REACH.
[2021-06-12 05:14] LABS: BASOPHILS ABSOLUTE AUTO 0.02 K/mm3 (0.00-0.23); BASOPHILS PERCENT AUTO 0 % (0-2); EOSINOPHILS ABSOLUTE AUTO 0.49 K/mm3 (0.00-0.68); EOSINOPHILS PERCENT AUTO 8 % (0-6); Hematocrit 25.6 % (37.0-53.0); IMMATURE GRAN ABSOLUTE AUTO 0.02 K/mm3 (0.00-0.10); IMMATURE GRAN PERCENT AUTO 0 % (0-1); LYMPHOCYTES ABSOLUTE AUTO 0.91 K/mm3 (0.84-5.20); LYMPHOCYTES PERCENT AUTO 14 % (21-46); MONOCYTES ABSOLUTE AUTO 0.55 K/mm3 (0.16-1.47); MONOCYTES PERCENT AUTO 9 % (4-13); Mean Corpuscular HGB 21.9 pg (26.0-34.0); Mean Corpuscular HGB Conc 27.3 g/dL (31.5-36.5); Mean Corpuscular Volume 80 fL (80-100); Mean Platelet Volume 8.9 fL (9.1-12.4); NEUTROPHILS ABSOLUTE AUTO 4.39 K/mm3 (1.96-9.15); NEUTROPHILS PERCENT AUTO 69 % (41-73); Platelet Count 382 K/mm3 (150-400); RDW Coefficient Variation 18.8 % (11.7-14.2); Red Blood Cell Count 3.19 M/mm3 (4.30-5.90); White Blood Cell Count 6.38 K/mm3 (4.00-11.30)
[2021-06-12 05:29] LABS: Albumin, Blood 2.3 g/dL (3.4-5.0); Anion Gap 5 mmol/L (6-16); Blood Urea Nitrogen 61 mg/dL (8-24); Bun/Creatinine Ratio 34.3 (12.0-20.0); CO2, Blood 30 mmol/L (21-32); Calcium, Blood 8.4 mg/dL (8.5-10.1); Chloride, Blood 108 mmol/L (98-108); Creatinine, Blood 1.78 mg/dL (0.60-1.20); Glomerular Filtration Rate 37 (60-); Glucose, Blood 93 mg/dL (70-99); Magnesium, Blood 2.1 mg/dL (1.6-2.4); Potassium, Blood 4.4 mmol/L (3.5-5.5); Sodium, Blood 143 mmol/L (136-145)
--- NOTE | 2021-06-12 07:43 | NUR ---
SHIFT SUMMARY NO ACUTE CHANGES THIS SHIFT. AOX2-SELF, PLACE. VSS. TELE AFIB c HR 113. CALL LIGHT IN REACH.
--- NOTE | 2021-06-12 20:14 | NUR ---
END OF SHIFT SUMMARY: PATIENT DENIED PAIN. PATIENT EXPERIENCED SHORTNESS OF BREATH AND INCREASE IN HEART RATE WITH TRANSFER TO THE CHAIR. THIS RESOLVED QUICKLY WITH REST. PATIENT ABLE TO MAKE HIS NEEDS KNOWN. PATIENT FORGETS TO USE THE CALL LIGHT AT TIMES AND SIMPLY CALLS OUT "NURSE". PATIENT ABLE TO EAT INDEPENDENTLY, BUT NEEDED ASSISTANCE WITH SETTING UP HIS TRAY. PATIENT CALM AND COOPERATIVE THROUGHOUT THE SHIFT.
--- NOTE | 2021-06-12 23:11 | NUR ---
DR BARGER called to report 11 beat run of vta asymptomatic no new orders.
[2021-06-13 05:00] LABS: Hematocrit 25.4 % (37.0-53.0); Hemoglobin 7.2 g/dL (13.5-17.5); Mean Corpuscular HGB 22.1 pg (26.0-34.0); Mean Corpuscular HGB Conc 28.3 g/dL (31.5-36.5); Mean Corpuscular Volume 78 fL (80-100); Mean Platelet Volume 8.6 fL (9.1-12.4); Platelet Count 387 K/mm3 (150-400); RDW Coefficient Variation 18.7 % (11.7-14.2); RDW Standard Deviation 53.5 fL (35.1-46.3); Red Blood Cell Count 3.26 M/mm3 (4.30-5.90); White Blood Cell Count 7.87 K/mm3 (4.00-11.30)
[2021-06-13 05:45] LABS: Albumin, Blood 2.4 g/dL (3.4-5.0); Albumin/Globulin Ratio 0.5 (0.8-1.8); Bilirubin, Total 0.5 mg/dL (0.1-1.0); Bun/Creatinine Ratio 31.4 (12.0-20.0); Calcium, Blood 8.5 mg/dL (8.5-10.1); Creatinine, Blood 1.59 mg/dL (0.60-1.20); Globulin, Blood 4.7 g/dL (2.2-4.0); Magnesium, Blood 1.7 mg/dL (1.6-2.4); Percent Saturation 5.1 % (20.0-50.0); Phosphorus, Blood 2.9 mg/dL (2.5-4.9); Potassium, Blood 4.2 mmol/L (3.5-5.5); Thyroid Stimulating Hormone 1.62 uIU/mL (0.360-4.800); Total Protein, Blood 7.1 g/dL (6.4-8.2)
--- NOTE | 2021-06-13 06:48 | NUR ---
PT unable to care for self per report caregiver he had is unable to continue to care for him due to back surgery. He does not use call torres he hollers out demanding at times. Unable to use urinal unassisted, has morbid obesity. Diabetic, has multiple skin issues. PT says he can barely walk & family not supportive. HAs psych eval pending to determine is PT needs guardianship.
[2021-06-13 13:26] LABS: SARS-Cov-2 (COVID-19) PCR, MMC NEGATIVE (NEGATIVE)
[2021-06-13] MEDS ORDERED: ALLO100 PO (15:55)
[2021-06-13] MEDS ORDERED: GLIP2.5ER PO (15:57)
[2021-06-13] MEDS ORDERED: METO25ER PO (15:58)
[2021-06-13] MEDS ORDERED: FOLI1 PO (16:00)
[2021-06-13] MEDS ORDERED: POTA8 PO (16:00)
[2021-06-13] MEDS ORDERED: DOCU100 PO (16:00)
[2021-06-13] MEDS ORDERED: FERSU300 PO (16:01)
[2021-06-13] MEDS ORDERED: DULCOLAX400 MG/5 M PO (16:01)
[2021-06-13] MEDS ORDERED: Vitamin B-121000 MCG PO (16:04)
--- NOTE | 2021-06-13 16:24 | NUR ---
DISCHARGE SUMMARY: PATIENT CALM AND COOPERATIVE THROUGHOUT THE SHIFT. PATIENT YELLED OCCASIONALLY WHEN HE FORGOT TO USE HIS CALL LIGHT. PATIENT DENIED PAIN OR DISCOMFORT THROUGHOUT THE SHIFT. PATIENT APPEARS TO HAVE A LITTLE SHORTNESS OF BREATH AT REST. PATIENT DENIES ANY SHORTNESS OF BREATH OR DIFFICULTY BREATHING. PATIENT UP TO THE CHAIR MULTIPLE TIMES TODAY. PATIENT TOLERATED WELL. PATIENT WORKED WITH PT TODAY. PATIENT WAS ABLE TO HAVE AN EXTRA LARGE BOWEL MOVEMENT TODAY. PATIENT DISCHARGED IN WHEELCHAIR SET UP BY CARE MANAGEMENT. PATIENT DISCHARGED WITH SURVEY METHODOLOGIST AND RN. PATIENT STABLE AT TIME OF DISCHARGE.
--- NOTE | 2021-06-13 16:47 | NUR ---
REPORT CALLED: AFTER MULTIPLE ATTEMPTS, ABLE TO GET THROUGH TO [facility]. REPORT GIVEN TO RECEIVING RN.
== END 2021-06-13 16:18 | DRG 682 ==
LOC: ER 02:00 → MEDS 13:41
PROVIDERS: Emergency Medicine; Internal Medicine; Internal Medicine Nephrology; Student in an Organized Health Care Education/Training Program; ADMIT Family Medicine
DX: N17.9 Acute kidney failure, unspecified (principal); I50.33 Acute on chronic diastolic (congestive) heart failure; J96.01 Acute respiratory failure with hypoxia; G93.41 Metabolic encephalopathy; K62.5 Hemorrhage of anus and rectum; I13.0 Hypertensive heart and chronic kidney disease with heart failure and stage 1 through stage 4 chronic kidney disease, or unspecified chronic kidney disease; E87.5 Hyperkalemia; N25.81 Secondary hyperparathyroidism of renal origin; M10.9 Gout, unspecified; E78.5 Hyperlipidemia, unspecified; L89.152 Pressure ulcer of sacral region, stage 2; Z96.653 Presence of artificial knee joint, bilateral; R29.6 Repeated falls; E86.9 Volume depletion, unspecified; N18.30 Chronic kidney disease, stage 3 unspecified; I48.91 Unspecified atrial fibrillation; E11.22 Type 2 diabetes mellitus with diabetic chronic kidney disease; I87.8 Other specified disorders of veins; E66.01 Morbid (severe) obesity due to excess calories; D63.1 Anemia in chronic kidney disease; Z74.01 Bed confinement status; Z98.890 Other specified postprocedural states; Z79.01 Long term (current) use of anticoagulants; Z79.899 Other long term (current) drug therapy; Z79.82 Long term (current) use of aspirin; Z98.49 Cataract extraction status, unspecified eye; Z79.84 Long term (current) use of oral hypoglycemic drugs
CPT/HCPCS: 36415; 71045; 76770; 80048; 80053; 80069; 82248; 82550; 82607; 82728; 82746; 82947; 83540; 83550; 83735; 84100; 84132; 84145; 84443; 84550; 85014; 85018; 85025; 85027; 96360; 96372; 96374; 97110; 97163; 97166; 97530; 99285-25; A9270; G0378; J0610; J0881; J1815; J2916; J3420; J7030; U0004

== ENCOUNTER 2021-07-17 14:24 | Emergency (ER) | payer OTHER ==
[~2021-07-17] VITALS: Ht 170.2 cm; Wt 106.6 kg
[~2021-07-17 14:24] MED LIST changes: +ALLO100 PO; +BACITRACIN ZIN1 EAC1 TOP; +DULCOLAX400 MG/5 M PO; +FERSU300 PO; +FOLI1 PO; +Vitamin B-121000 MCG PO
[2021-07-17 15:16] LABS: BASOPHILS ABSOLUTE AUTO 0.05 K/mm3 (0.00-0.23); BASOPHILS PERCENT AUTO 1 % (0-2); EOSINOPHILS ABSOLUTE AUTO 0.48 K/mm3 (0.00-0.68); EOSINOPHILS PERCENT AUTO 6 % (0-6); Hematocrit 29.5 % (37.0-53.0); Hemoglobin 8.3 g/dL (13.5-17.5); IMMATURE GRAN ABSOLUTE AUTO 0.02 K/mm3 (0.00-0.10); IMMATURE GRAN PERCENT AUTO 0 % (0-1); LYMPHOCYTES ABSOLUTE AUTO 0.76 K/mm3 (0.84-5.20); LYMPHOCYTES PERCENT AUTO 9 % (21-46); MONOCYTES PERCENT AUTO 9 % (4-13); Mean Corpuscular HGB 22.9 pg (26.0-34.0); Mean Corpuscular HGB Conc 28.1 g/dL (31.5-36.5); Mean Corpuscular Volume 82 fL (80-100); Mean Platelet Volume 9.9 fL (9.1-12.4); NEUTROPHILS ABSOLUTE AUTO 6.47 K/mm3 (1.96-9.15); NEUTROPHILS PERCENT AUTO 75 % (41-73); Platelet Count 321 K/mm3 (150-400); RDW Coefficient Variation 19.9 % (11.7-14.2); RDW Standard Deviation 59.3 fL (35.1-46.3); Red Blood Cell Count 3.62 M/mm3 (4.30-5.90); White Blood Cell Count 8.58 K/mm3 (4.00-11.30)
[2021-07-17 15:30] LABS: Albumin, Blood 2.6 g/dL (3.4-5.0); Albumin/Globulin Ratio 0.6 (0.8-1.8); Bilirubin, Total 0.4 mg/dL (0.1-1.0); Bun/Creatinine Ratio 27.9 (12.0-20.0); Calcium, Blood 8.7 mg/dL (8.5-10.1); Creatinine, Blood 2.22 mg/dL (0.60-1.20); Globulin, Blood 4.6 g/dL (2.2-4.0); Potassium, Blood 5.7 mmol/L (3.5-5.5); Total Protein, Blood 7.2 g/dL (6.4-8.2)
[2021-07-17] MEDS ORDERED: MUPIROCIN15 GM TOP (17:35)
== END 2021-07-17 18:26 | disposition home or self-care (01) ==
LOC: ER 14:24
PROVIDERS: Emergency Medicine
DX: R60.0 Localized edema (principal); L97.909 Non-pressure chronic ulcer of unspecified part of unspecified lower leg with unspecified severity; I11.0 Hypertensive heart disease with heart failure; I50.9 Heart failure, unspecified; E11.9 Type 2 diabetes mellitus without complications; I48.91 Unspecified atrial fibrillation; E78.5 Hyperlipidemia, unspecified; M10.9 Gout, unspecified
CPT/HCPCS: 36415; 71045; 80053; 83880; 85025; 93005; 93010; 99284-25

== ENCOUNTER 2021-09-01 06:45 | Inpatient (IN) | payer OTHER ==
[~2021-09-01] VITALS: Ht 170.2 cm; Wt 117.2 kg
[~2021-09-01 06:45] MED LIST changes: +MUPIROCIN15 GM TOP
[2021-09-01 08:07] LABS: BASOPHILS ABSOLUTE AUTO 0.04 K/mm3 (0.00-0.23); BASOPHILS PERCENT AUTO 1 % (0-2); EOSINOPHILS ABSOLUTE AUTO 0.07 K/mm3 (0.00-0.68); EOSINOPHILS PERCENT AUTO 1 % (0-6); Hematocrit 26.3 % (37.0-53.0); Hemoglobin 7.2 g/dL (13.5-17.5); IMMATURE GRAN ABSOLUTE AUTO 0.03 K/mm3 (0.00-0.10); IMMATURE GRAN PERCENT AUTO 0 % (0-1); LYMPHOCYTES ABSOLUTE AUTO 0.48 K/mm3 (0.84-5.20); LYMPHOCYTES PERCENT AUTO 6 % (21-46); MONOCYTES ABSOLUTE AUTO 0.68 K/mm3 (0.16-1.47); MONOCYTES PERCENT AUTO 9 % (4-13); Mean Corpuscular HGB Conc 27.4 g/dL (31.5-36.5); Mean Corpuscular Volume 80 fL (80-100); Mean Platelet Volume 9.1 fL (9.1-12.4); NEUTROPHILS ABSOLUTE AUTO 6.45 K/mm3 (1.96-9.15); NEUTROPHILS PERCENT AUTO 83 % (41-73); Platelet Count 392 K/mm3 (150-400); RDW Coefficient Variation 18.2 % (11.7-14.2); RDW Standard Deviation 53.9 fL (35.1-46.3); Red Blood Cell Count 3.27 M/mm3 (4.30-5.90); White Blood Cell Count 7.75 K/mm3 (4.00-11.30)
[2021-09-01 08:27] LABS: Alanine Aminotransfer (ALT/SGP 14 U/L (12-78); Albumin, Blood 2.6 g/dL (3.4-5.0); Albumin/Globulin Ratio 0.5 (0.8-1.8); Alk Phos 158 U/L (50-136); Anion Gap 10 mmol/L (6-16); Aspartate Aminotrans (AST/SGOT 20 U/L (12-37); Bilirubin, Total 0.5 mg/dL (0.1-1.0); Blood Urea Nitrogen 53 mg/dL (8-24); Bun/Creatinine Ratio 32.3 (12.0-20.0); CO2, Blood 17 mmol/L (21-32); Calcium, Blood 8.8 mg/dL (8.5-10.1); Chloride, Blood 119 mmol/L (98-108); Creatinine, Blood 1.64 mg/dL (0.60-1.20); Globulin, Blood 4.8 g/dL (2.2-4.0); Glomerular Filtration Rate 41 (60-); Glucose, Blood 100 mg/dL (70-99); Potassium, Blood 5.7 mmol/L (3.5-5.5); Sodium, Blood 146 mmol/L (136-145); Total Protein, Blood 7.4 g/dL (6.4-8.2); Troponin I <0.015 ng/mL (0.000-0.040)
[2021-09-01 10:29] LABS: Appearance, Urine Clear (Clear); Bilirubin, Urine Neg (Neg); Blood, Urine Neg (Neg); Color, Urine Yellow (P-Yellow); Glucose Qualitative, Urine Neg (Neg); Ketones, Urine 2+ (Neg); Leukocyte Esterase, Urine 2+ (Neg); Nitrite, Urine Neg (Neg); Protein, Urine Neg (Neg); Specific Gravity, Urine 1.015 (1.003-1.022); Urobilinogen, Urine NORM (Normal)
[2021-09-01 10:50] LABS: Red Blood Cells, Urine 0-2 /hpf (0-2)
[2021-09-01 10:51] LABS: Bacteria Mod /hpf; Granular Casts 0-2 /lpf (0); Hyaline Casts 0-2 /lpf (0-2); Squamous Epithelial Cells Few /hpf (Few)
[2021-09-01 12:04] LABS: PCO2 Arterial 38.9 mmHg (35-45); PO2 Arterial 82.2 mmHg (80-100)
[2021-09-01 12:05] LABS: pH Blood Arterial 7.27 (7.35-7.45)
[2021-09-01 12:08] LABS: Percent Saturation 3.8 % (20.0-50.0)
--- NOTE | 2021-09-01 12:59 | NUR ---
Echocardiogram completed.
[2021-09-01] MEDS ORDERED: ACET325 PO (15:15)
[2021-09-01] MEDS ORDERED: LISI20 PO (15:25)
[2021-09-01] MEDS ORDERED: GLIP5ER PO (15:30)
--- NOTE | 2021-09-01 18:52 | NUR ---
HR WAS 130'S ON ARRIVAL TO THE FLOOR, METOPROLOL GIVEN AND PATIENT IS NOW A-FIB IN THE 70'S ON TELE. NS @ 500ML/HR X1 BAG. WOUNDS TO BUTTOCKS AND LEGS, PICTURES TAKEN AND PLACED ON CHART. BLOOD SUGARS ACHS. OXYCODONE GIVEN TO TREAT PAIN IN LEGS, BUTTOCKS. VSS, ON 3LO2 VIA NC. 20G IV TO L AC WNL. BLE DOPPLER ORDERED, PATIENT UNABLE TO TOLERATE THE FULL TEST DUE TO PAIN, R LEG COMPLETED PER TECH. FALL PRECAUTIONS IN PLACE PER UNIT PROTOCOL. PATIENT VOIDING IN URINAL. CALLS YUNIORMETHODIST [facility] FOR ASSISTANCE.
[2021-09-02 02:34] LABS: Albumin, Blood 2.1 g/dL (3.4-5.0); Albumin/Globulin Ratio 0.5 (0.8-1.8); Bilirubin, Total 0.2 mg/dL (0.1-1.0); Bun/Creatinine Ratio 27.7 (12.0-20.0); Creatinine, Blood 1.88 mg/dL (0.60-1.20); Globulin, Blood 4.1 g/dL (2.2-4.0); Potassium, Blood 5.9 mmol/L (3.5-5.5); Total Protein, Blood 6.2 g/dL (6.4-8.2)
[2021-09-02 02:35] LABS: BASOPHILS ABSOLUTE AUTO 0.03 K/mm3 (0.00-0.23); BASOPHILS PERCENT AUTO 1 % (0-2); EOSINOPHILS ABSOLUTE AUTO 0.17 K/mm3 (0.00-0.68); EOSINOPHILS PERCENT AUTO 3 % (0-6); Hematocrit 23.6 % (37.0-53.0); Hemoglobin 6.5 g/dL (13.5-17.5); IMMATURE GRAN ABSOLUTE AUTO 0.02 K/mm3 (0.00-0.10); IMMATURE GRAN PERCENT AUTO 0 % (0-1); LYMPHOCYTES ABSOLUTE AUTO 0.81 K/mm3 (0.84-5.20); LYMPHOCYTES PERCENT AUTO 13 % (21-46); MONOCYTES ABSOLUTE AUTO 0.86 K/mm3 (0.16-1.47); MONOCYTES PERCENT AUTO 13 % (4-13); Mean Corpuscular HGB 22.1 pg (26.0-34.0); Mean Corpuscular HGB Conc 27.5 g/dL (31.5-36.5); Mean Corpuscular Volume 80 fL (80-100); Mean Platelet Volume 9.5 fL (9.1-12.4); NEUTROPHILS ABSOLUTE AUTO 4.59 K/mm3 (1.96-9.15); NEUTROPHILS PERCENT AUTO 71 % (41-73); NRBC ABSOLUTE 0.03 K/mm3 (0.00-0.02); NRBC Auto 0.5 /100 WBC (0.0-0.2); Platelet Count 344 K/mm3 (150-400); RDW Coefficient Variation 18.1 % (11.7-14.2); RDW Standard Deviation 52.8 fL (35.1-46.3); Red Blood Cell Count 2.94 M/mm3 (4.30-5.90); White Blood Cell Count 6.48 K/mm3 (4.00-11.30)
--- NOTE | 2021-09-02 04:06 | NUR ---
SHIFT SUMMARY JOSE HERE FOR RESP FAILURE. POSSIBLE PNA NOTED ON ER CXR. A&O X2-3. PT HAS STAGE 2 PRESSURE ULCERS ON BUTTOCKS, THEY ARE DIME SIZED. BILAT LOWER EXTREMITIES ARE SWOLLEN, RED, AND WEEPY WITH THICKENED TOE NAILS. WOUNDS ARE OPEN TO AIR . PT CANNOT TOLERATE PALPATION TO THE BLE. PT REPOSITIONED Q2 HOURS. HE IS OBESE. WEARING ATTENDS. DIET IS 2GRAM SODIUM/ADA DIET. AT [facility] USES 2-3 L OXYGEN PRN. CURRENTLY ON 3LPM VIA NC TO MAINTAIN SATS ABOVE 94%. TELEMETRY REPORTED HEART RATE IN A-FIB, RATE OF 76. BLOOD SUGAR WAS 141 QHS. BED IN LOWEST POSITION, WILL CONTINUE TO MONITOR UNTIL GIVING REPORT TO DAYTIME NURSE.
[2021-09-02 05:14] LABS: PCO2 Arterial 52.9 mmHg (35-45); PO2 Arterial 85.2 mmHg (80-100); pH Blood Arterial 7.18 (7.35-7.45)
--- NOTE | 2021-09-02 06:58 | NUR ---
PHONE CALL TO PHYSICIAN PLACED PHONE CALL TO DR. MCMANUS - HGB FROM BLOOD WORK DONE 210 WAS 6.5. HGB FROM ABG DONE 5:[address] MCMANUS WITH ORDERS FOR A REPEAT HGB, ORDER ENTERED INTO EHR STAT.
--- NOTE | 2021-09-02 08:18 | NUR ---
pt laying in bed with eyes closed, he is confused and unable to cooperate with assessment, lungs are dim in upper ordoñez, course dim in bases, resp even and unlabored, no cough noted, hrirr, tele in place running afib per monitor, see strip, 2+ edema noted to b/l le, ppp faint, cap refill <3sec, vs have been running low, but this am is over 100, iv to lac, site is clear and patent, btx4 hypoactive, abd large soft nontender, attends in place, no void durring the night, bladder scan was done, post void, shows 471mls in bladder, will notify Dr. skin has very dark skin to b/l le, feet are red, sore to buttocks, ointment applied, total care pt, turn q2, carissa, call light in reach.
--- NOTE | 2021-09-02 11:56 | NUR ---
pt b/p dropped to the 80's, Dr. Perkins notified, ordered 500ml bolus, then change to l.r. bolus currently infusing. placed todd for retention, return of clear kitty urine, difficult insertion. will start abx per orders. pt tolerated well, no signs of distress, call light in reach.
[2021-09-02 12:06] LABS: Source, Urine Catheter
[2021-09-02 12:09] LABS: Appearance, Urine Clear (Clear); Bilirubin, Urine Neg (Neg); Blood, Urine Neg (Neg); Color, Urine Yellow (P-Yellow); Glucose Qualitative, Urine Neg (Neg); Ketones, Urine Neg (Neg); Leukocyte Esterase, Urine 1+ (Neg); Nitrite, Urine Neg (Neg); Protein, Urine Neg (Neg); Urobilinogen, Urine 1+ (Normal)
[2021-09-02 12:24] LABS: Calcium Oxalate Crystals Few /hpf
[2021-09-02 12:25] LABS: Red Blood Cells, Urine 0-2 /hpf (0-2); White Blood Cells, Urine 0-2 /hpf (0-5)
[2021-09-02 12:26] LABS: Bacteria Few /hpf; Squamous Epithelial Cells Few /hpf (Few)
[2021-09-02 17:02] LABS: U Amphetamine Screen Not Detected; U Barbituate Screen Not Detected; U Benzodiazapine Screen Not Detected; U Buprenorphine Screen Not Detected; U Cannabinoids Screen Not Detected; U Cocaine Screen Not Detected; U Methadone Screen Not Detected; U Methamphetamine Screen Not Detected; U Opiates Screen Not Detected; U Oxycodone Screen DETECTED; U Phencyclidine Screen Not Detected; U Propoxyphene Screen Not Detected
--- NOTE | 2021-09-02 18:35 | NUR ---
pt has had no further low pressure events since this am and fluids have been infusing. has been sleeping all afternoon. wakes easily. no further changes, call light in reach.
--- NOTE | 2021-09-03 04:21 | NUR ---
SHIFT SUMMARY ADMITTED FOR RESPIRATORY FAILURE. FULL CODE. PLAN IS FOR PLACEMENT. TELEMETRY: AFIB @ 87 BPM. RESPIRATORY CARE ATTEMPTED TO PUT HIM ON BIPAP FOR SLEEP, BUT HE DID NOT TOLERATE THAT. HEALY IS IN PLACE AND PATENT. LR INFUSING @ 125 ML/HR. HE IS ACHS CHEMSTICKS. HE PREVIOUSLY LIVED ALONE WITH A CAREGIVER NEIGHBOR. HE IS CONFUSED. 2 G LOW NA+ DIET.
[2021-09-03 05:17] LABS: Hematocrit 24.9 % (37.0-53.0); Hemoglobin 6.7 g/dL (13.5-17.5); Mean Corpuscular HGB 21.9 pg (26.0-34.0); Mean Corpuscular HGB Conc 26.9 g/dL (31.5-36.5); Mean Corpuscular Volume 81 fL (80-100); Mean Platelet Volume 9.6 fL (9.1-12.4); NRBC ABSOLUTE 0.12 K/mm3 (0.00-0.02); NRBC Auto 1.5 /100 WBC (0.0-0.2); Platelet Count 375 K/mm3 (150-400); RDW Coefficient Variation 18.3 % (11.7-14.2); RDW Standard Deviation 54.4 fL (35.1-46.3); Red Blood Cell Count 3.06 M/mm3 (4.30-5.90); White Blood Cell Count 8.23 K/mm3 (4.00-11.30)
[2021-09-03 05:44] LABS: Bun/Creatinine Ratio 22.9 (12.0-20.0); Creatinine, Blood 2.4 mg/dL (0.60-1.20)
--- NOTE | 2021-09-03 11:46 | NUR ---
PATIENT IS RECIEVING BLOOD TRANSFUSION AT THIS TIME AND IS TOLERATING WITHOUT COMPLICATION THUS FAR.
--- NOTE | 2021-09-03 16:29 | NUR ---
PATIENT HAS BEEN PRETTY LETHARGIC TODAY AND SLEEPING FOR THE MAJORITY OF THE DAY. HIS H&H WAS LOW AND RECIEVED A BLOOD TRANSFUSION WITHOUT ANY ADVERSE REACTIONS NOTED. PATIENT ALSO CONTINUES TO RECIEVE IV ABX WITHOUT S/SX OF ADVERSE REACTIONS NOTED FROM THAT. PATIENT IS BEDBOUND AND IS REPOSITIONED Q2HR AND PRN. BP HYPOTENSIVE FOR MAJORTY OF THE DAY BUT WILL HOPEFULLY IMPROVE S/P TRANSFUSION. PATIENT RESTING IN ROOM AT THIS TIME. CALL LIGHT IN REACH.
[2021-09-03 16:39] LABS: Hematocrit 27.5 % (37.0-53.0); Hemoglobin 7.4 g/dL (13.5-17.5)
[2021-09-03 21:07] LABS: A/G RATIO 0.9 (0.7-1.7); ALBUMIN 2.9 g/dL (2.9-4.4); ALPHA-1-GLOBULIN 0.3 g/dL (0.0-0.4); ALPHA-2-GLOBULIN 0.6 g/dL (0.4-1.0); BETA GLOBULIN 0.9 g/dL (0.7-1.3); GAMMA GLOBULIN 1.4 g/dL (0.4-1.8); GLOBULIN, TOTAL 3.2 g/dL (2.2-3.9); IMMUNOGLOBULIN A, QN, SERUM 389 mg/dL (61-437); IMMUNOGLOBULIN G, QN, SERUM 1401 mg/dL (603-1613); IMMUNOGLOBULIN M, QN, SERUM 43 mg/dL (15-143); M-SPIKE 0.3 g/dL (Not Observed); PROTEIN, TOTAL, SERUM 6.1 g/dL (6.0-8.5)
--- NOTE | 2021-09-03 22:43 | NUR ---
2019 PT HAS BEEN SOMNOLENT. THIS RN CALLED PT'S NAME SEVERAL TIMES BEFORE PT OPENED HIS EYES FOR A SECOND AND CLOSED THEM AGAIN. HYPOTENSIVE BP OF 88/46. DR. CORMIER MADE KNOWN AND ORDERED 500ML NS BOULUS. CURRENTLY ON CPAP SATTING IN THE MID 90'S. A. FIB IN THE 80'S PER PROPOSAL DEVELOPMENT MANAGER. VITALS REASSESSED- BP AND MENTATION AND HAS IMPROVED. HOSPITALST DR. SOTO MADE KNOWN AND ORDER TO TRANFER PT TO ICU. 0 PT HAS BEEN TRANSFERED TO ICU ROOM 7.
[2021-09-03 23:30] LABS: BASOPHILS ABSOLUTE AUTO 0.02 K/mm3 (0.00-0.23); BASOPHILS PERCENT AUTO 0 % (0-2); EOSINOPHILS ABSOLUTE AUTO 0.14 K/mm3 (0.00-0.68); EOSINOPHILS PERCENT AUTO 2 % (0-6); Hematocrit 28.9 % (37.0-53.0); Hemoglobin 7.9 g/dL (13.5-17.5); IMMATURE GRAN ABSOLUTE AUTO 0.11 K/mm3 (0.00-0.10); IMMATURE GRAN PERCENT AUTO 1 % (0-1); LYMPHOCYTES ABSOLUTE AUTO 0.78 K/mm3 (0.84-5.20); LYMPHOCYTES PERCENT AUTO 9 % (21-46); MONOCYTES ABSOLUTE AUTO 0.91 K/mm3 (0.16-1.47); MONOCYTES PERCENT AUTO 11 % (4-13); Mean Corpuscular HGB 22.9 pg (26.0-34.0); Mean Corpuscular HGB Conc 27.3 g/dL (31.5-36.5); Mean Corpuscular Volume 84 fL (80-100); Mean Platelet Volume 9.6 fL (9.1-12.4); NEUTROPHILS ABSOLUTE AUTO 6.51 K/mm3 (1.96-9.15); NEUTROPHILS PERCENT AUTO 77 % (41-73); NRBC Auto 1.2 /100 WBC (0.0-0.2); Platelet Count 382 K/mm3 (150-400); RDW Coefficient Variation 18.3 % (11.7-14.2); RDW Standard Deviation 56.1 fL (35.1-46.3); Red Blood Cell Count 3.45 M/mm3 (4.30-5.90); White Blood Cell Count 8.47 K/mm3 (4.00-11.30)
[2021-09-03 23:38] LABS: Source, Urine Catheter
[2021-09-03 23:43] LABS: PCO2 Arterial 58.7 mmHg (35-45); PO2 Arterial 106 mmHg (80-100); pH Blood Arterial 7.18 (7.35-7.45)
[2021-09-03 23:44] LABS: Albumin, Blood 2.1 g/dL (3.4-5.0); Albumin/Globulin Ratio 0.4 (0.8-1.8); Bilirubin, Total 0.2 mg/dL (0.1-1.0); Bun/Creatinine Ratio 21.6 (12.0-20.0); Calcium, Blood 8.1 mg/dL (8.5-10.1); Creatinine, Blood 2.59 mg/dL (0.60-1.20); Globulin, Blood 4.8 g/dL (2.2-4.0); Potassium, Blood 5.5 mmol/L (3.5-5.5); Total Protein, Blood 6.9 g/dL (6.4-8.2)
[2021-09-03 23:44] LABS: Bilirubin, Urine Neg (Neg); Blood, Urine 5+ (Neg); Glucose Qualitative, Urine Neg (Neg); Ketones, Urine Neg (Neg); Leukocyte Esterase, Urine 3+ (Neg); Nitrite, Urine Neg (Neg); Protein, Urine 2+ (Neg); Urobilinogen, Urine NORM (Normal)
[2021-09-03 23:47] LABS: Appearance, Urine Hazy (Clear); Color, Urine Pale Yellow (P-Yellow)
[2021-09-03 23:51] LABS: Amorphous Light (0-Heavy); Bacteria Mod /hpf; Hyaline Casts 0-2 /lpf (0-2); Mucus Light (0-Heavy); Squamous Epithelial Cells Not Seen /hpf (Few); White Blood Cells, Urine TNTC /hpf (0-5)
--- NOTE | 2021-09-04 00:40 | NUR ---
TRANSFER 09/03 AT 2240 PATIENT ARRIVED TO ICU 7 VIA BED FROM [facility] FOR DECREASED LOC AND LOW BP. TRANSFERRED TO ICU BED WITH SLIDER SHEET AND PLACED ON ICU MONITORS PATIENT AWAKENS TO VERBAL STIMULI, ANSWERING SIMPLE QUESTIONS, FALLING BACK TO SLEEP DURING QUESTIONS. GENERALIZED WEAKNESS AND NOT ALWAYS FOLLOWING DIRECTIONS. ARRIVED WITH 4L/NC BIOX 87% PLACED ON BIPAP WITH 6L BLEED IN AND RT CALLED REGARDING BIPAP SETTINGS AND NEED FOR ABG. DOCTOR JAZLYN IN SHORTLY AFTER PATIENT ARRIVED TO ROOM. SEE NEW ORDERS. PATIENT NOW ON BIPAP 20/10 FIO2 30% GENERALIZED 3+ PITTING EDEMA, BOTH LEGS DISCOLORED AND MULTIPLE WOUNDS IN VARIOUS STAGES OF HEALING. PULSES 1+, SKIN COOL TO TOUCH.
--- NOTE | 2021-09-04 01:35 | NUR ---
WHILE REPOSITIONING PATIENT IN BED PATIENTS RHYTHM CHANGED TO SLIGHTLY WIDER AND RATE 120'S SELF RESOLVING BACK TO RATE 60'S SEE STRIPS IN CHART
--- NOTE | 2021-09-04 02:55 | NUR ---
PATIENT MORE AWAKE, ORIENTED TO SELF AND BEING AT [facility]. VERBALIZED THAT HE IS WANTING TO GET UP TO THE BATHROOM. EXTREMITIES CONTINUE TO BE VERY STIFF. AND BIOX 90% ON 4L/NC FOR ORAL CARE.
[2021-09-04 03:55] LABS: Hematocrit 26.1 % (37.0-53.0); Hemoglobin 7.1 g/dL (13.5-17.5); Mean Corpuscular HGB 22.5 pg (26.0-34.0); Mean Corpuscular HGB Conc 27.2 g/dL (31.5-36.5); Mean Corpuscular Volume 83 fL (80-100); Mean Platelet Volume 9.7 fL (9.1-12.4); NRBC ABSOLUTE 0.07 K/mm3 (0.00-0.02); Platelet Count 328 K/mm3 (150-400); RDW Coefficient Variation 18.4 % (11.7-14.2); RDW Standard Deviation 55.4 fL (35.1-46.3); Red Blood Cell Count 3.15 M/mm3 (4.30-5.90); White Blood Cell Count 7.19 K/mm3 (4.00-11.30)
[2021-09-04 04:08] LABS: Bun/Creatinine Ratio 21.1 (12.0-20.0); Calcium, Blood 7.8 mg/dL (8.5-10.1); Creatinine, Blood 2.61 mg/dL (0.60-1.20); Potassium, Blood 5.3 mmol/L (3.5-5.5)
--- NOTE | 2021-09-04 05:20 | NUR ---
PATIENT INSISTING ON HAVING BIPAP OFF, "IT DELORIS ME" PLACED ON 2L/NC WITH BIOX 93% PATIENT CONTINUES TO HAVE HYPOTENSION OFF AND ON. RT AWARE THAT PATIENT REFUSING TO REPLACE BIPAP.
--- NOTE | 2021-09-04 06:16 | NUR ---
SUMMARY PATIENT CONTINUES TO REFUSE TO WEAR BIPAP. MAINTAINING BIOX WITH 2L/NC. AWAKENS TO SLIGHT STIMULI, A&O GENERALIZED WEAKNESS, ATTEMPTING TO ASSIST WITH REPOSITIONING. YELLING OUT FOR ASSISTANCE WHEN INCONT OF STOOL. NO FURTHER EPISODES OF WIDE TACHY RHYTHM. AFIB CONTINUES.
--- NOTE | 2021-09-04 13:41 | NUR ---
pt haspolst and advance directive on file with wishes. pt able to particiapte ain some [id number] showing improvement. Contacted pt daughter Angela. She did not know he was in hospital. updated on status she reviewed his SNF stay. advised her he has polst and directive we are flooing for his care.She agreed. She will update the rest of her family and stated Cal his friend and caregiver is probably the best contact for decision making.
--- NOTE | 2021-09-04 16:46 | NUR ---
ASSUMED CARE OF PATIENT AT 0700. PT RESTING COMFORTABLE, ASSESSMENT PERFORMED NOTED IN CHART. DR BARROSO NOTIFIED OF PT LOW BP, ORDERS TO START LEVO LOW DOSE TO A MAX OF 8MCG. LEVO STARTED AND PT TOLLERATED WELL. WILL CONTIUE TO MONITOR.
--- NOTE | 2021-09-04 20:58 | NUR ---
SHIFT ASSESSMENT ASSUMED CARE OF PT @ 1900. PT ALERT AND ORIENTED, FOLLOWING SIMPLE COMMANDS. REMAINS LETHARGIC, QUICKLY BACK TO SLEEP c DECREASED STIMULATION. ON 4LPM O2 VIA NC c O2 SATS >90%. NOREPINEPHRINE GTT @ 1MCG/MIN c MAP >65. HEALY CATH WITH SMALL AMNT OF DARK URINE. WILL CONTINUE TO MONITOR CLOSELY.
[2021-09-05 03:27] LABS: Hematocrit 26.7 % (37.0-53.0); Hemoglobin 7.2 g/dL (13.5-17.5)
[2021-09-05 03:47] LABS: Albumin, Blood 2.3 g/dL (3.4-5.0); Anion Gap 5 mmol/L (6-16); Blood Urea Nitrogen 58 mg/dL (8-24); Bun/Creatinine Ratio 18.7 (12.0-20.0); CO2, Blood 23 mmol/L (21-32); Calcium, Blood 7.8 mg/dL (8.5-10.1); Chloride, Blood 111 mmol/L (98-108); Glomerular Filtration Rate 19 (60-); Glucose, Blood 135 mg/dL (70-99); Magnesium, Blood 1.7 mg/dL (1.6-2.4); Phosphorus, Blood 5.7 mg/dL (2.5-4.9); Potassium, Blood 5.4 mmol/L (3.5-5.5); Sodium, Blood 139 mmol/L (136-145)
--- NOTE | 2021-09-05 06:09 | NUR ---
SHIFT SUMMARY PT ALERT AND ORIENTED, FOLLOWING SIMPLE COMMANDS. ABLE TO SLEEP FOR SHORT PERIODS DURING THE NIGHT. REMAINS ON 1MCG/MIN OF NOREPINEPHRINE c MAP >65. PT REFUSED BIPAP DURING THE NIGHT, O2 SATS > 90% ON 4LPM VIA NC. 650ML URINE OUT. NO BM THIS SHIFT. NO ACUTE CHANGES IN PT CONDITION. REPORT TO ONCOMING NURSE.
--- NOTE | 2021-09-05 07:21 | NUR ---
ASSUMED PATIENT CARE THIS AM, REPORT GIVEN BY NIGHT RN. NO REAL CHANGES IN PT CONDITION FROM PREVIOUS SHIFT. ASSESSMENT PERFORMED NOTED, WILL CONTINUE TO MONITOR.
--- NOTE | 2021-09-05 21:11 | NUR ---
SHIFT ASSESSMENT ASSUMED CARE OF PT @ 1900. PT ALERT AND ORIENTED, FOLLOWING SIMPLE COMMANDS. AGITATED. REQUESTING ORANGES OR WATER. PT REMINDED OF HIS FAILED SWALLOW EVAL TODAY. PT REMAINS ON 4LPM O2 VIA NC c O2 SATS >95%. VSS, A-FIB ON THE PROCESS WORKER. HEALY CATH DRAINING NEGRITA URINE, OUTPUT INCREASING. WILL CONTINUE TO MONITOR.
[2021-09-06 03:51] LABS: Hematocrit 25.7 % (37.0-53.0); Hemoglobin 7.2 g/dL (13.5-17.5)
[2021-09-06 04:05] LABS: Albumin, Blood 2.3 g/dL (3.4-5.0); Anion Gap 6 mmol/L (6-16); Blood Urea Nitrogen 57 mg/dL (8-24); Bun/Creatinine Ratio 19.1 (12.0-20.0); CO2, Blood 27 mmol/L (21-32); Calcium, Blood 7.8 mg/dL (8.5-10.1); Chloride, Blood 110 mmol/L (98-108); Creatinine, Blood 2.99 mg/dL (0.60-1.20); Glomerular Filtration Rate 20 (60-); Glucose, Blood 131 mg/dL (70-99); Magnesium, Blood 1.6 mg/dL (1.6-2.4); Phosphorus, Blood 4.9 mg/dL (2.5-4.9); Potassium, Blood 4.7 mmol/L (3.5-5.5); Sodium, Blood 143 mmol/L (136-145)
--- NOTE | 2021-09-06 06:04 | NUR ---
SHIFT SUMMARY PT REMAINS ALERT WITH INTERMITTENT BOUTS OF CONFUSION. CONTINUES ON 4LPM O2 VIA NC c SATS >95%. PT C/O MODERATE PAIN IN HIS BACK AND LEGS WELL DIFFICULTY SLEEPING. MEDICATED c PRN FENTANYL WHICH SEEMED TO HELP PT RELAX. VSS T/O THE NIGHT. URINE OUTPUT INCREASING, HEALY c 2820 ML CLEAR URINE OUT. NO OTHER ACUTE CHANGES DURING THE NIGHT.
--- NOTE | 2021-09-06 11:13 | NUR ---
CARE ASSUMPTION/ARRIVAL TO PCU PATIENT ARRIVED ARPOX 0930 FROM ICU VIA ICU BED. THIS RN GOT BEDSIDE REPORT. PATIENT TRANSFERED TO PCU BED BY SLIDER SHEET. PATIENT IS ALERT TO SELF, PLACE, AND FOLLOWING COMMANDS. PATIENT IS CONFUSED AND FORGETFUL. PER ICU NURSE THIS MENTATION IS PATIENTS BASELINE FROM WHAT CAREGIVER SAID. PATIENT IS NPO. HEALY IN PLACE DRAINING WITH GRAVITY, CLEAR URINE. CALL LIGHT WITHIN REACH. SPEECH, PHYSICAL THERAPY, AND OCCUPATIONAL THERAPY IN TO SEE PATIENT THS AM. BED IN LOWEST POSITION, CALL LIGHT WITHIN REACH, AND BED ALARM ON. VSS. TELE AFIB 80S. SPO2 >90% ON 4L NC. WILL CONTINUE TO MONITOR AND PROVIDE CARE.
--- NOTE | 2021-09-06 17:57 | NUR ---
SHIFT SUMMARY PATIENT IS A/OX1. PATIENT NEEDS REORIENTATION AND CALLED FOR HIS BROTHER AND MOTHER THROUGHOUT THE SHIFT. OTHERWISE PATIENT IS CALM IN ROOOM AND FOLLOWS COMMANDS. VSS. SPO2 >90% ON 4L NC. TELE SR/ST. NO ACUTE CHANGES THIS SHIFT. WILL CONTINUE TO MONITOR AND PROVIDE CARE UNTIL HAND OFF WITH NEXT SHIFT.
[2021-09-07 04:03] LABS: BASOPHILS ABSOLUTE AUTO 0.05 K/mm3 (0.00-0.23); BASOPHILS PERCENT AUTO 1 % (0-2); EOSINOPHILS ABSOLUTE AUTO 0.18 K/mm3 (0.00-0.68); EOSINOPHILS PERCENT AUTO 2 % (0-6); Hematocrit 27.1 % (37.0-53.0); Hemoglobin 7.7 g/dL (13.5-17.5); IMMATURE GRAN ABSOLUTE AUTO 0.08 K/mm3 (0.00-0.10); IMMATURE GRAN PERCENT AUTO 1 % (0-1); LYMPHOCYTES PERCENT AUTO 4 % (21-46); MONOCYTES ABSOLUTE AUTO 1.12 K/mm3 (0.16-1.47); MONOCYTES PERCENT AUTO 12 % (4-13); Mean Corpuscular HGB 23.1 pg (26.0-34.0); Mean Corpuscular HGB Conc 28.4 g/dL (31.5-36.5); Mean Corpuscular Volume 81 fL (80-100); Mean Platelet Volume 9.3 fL (9.1-12.4); NEUTROPHILS ABSOLUTE AUTO 7.75 K/mm3 (1.96-9.15); NEUTROPHILS PERCENT AUTO 81 % (41-73); NRBC ABSOLUTE 0.05 K/mm3 (0.00-0.02); NRBC Auto 0.5 /100 WBC (0.0-0.2); Platelet Count 350 K/mm3 (150-400); RDW Coefficient Variation 20.2 % (11.7-14.2); RDW Standard Deviation 56.3 fL (35.1-46.3); Red Blood Cell Count 3.33 M/mm3 (4.30-5.90); White Blood Cell Count 9.58 K/mm3 (4.00-11.30)
[2021-09-07 04:23] LABS: Albumin, Blood 2.7 g/dL (3.4-5.0); Anion Gap 7 mmol/L (6-16); Blood Urea Nitrogen 50 mg/dL (8-24); Bun/Creatinine Ratio 18.9 (12.0-20.0); CO2, Blood 30 mmol/L (21-32); Calcium, Blood 8.5 mg/dL (8.5-10.1); Chloride, Blood 107 mmol/L (98-108); Creatinine, Blood 2.64 mg/dL (0.60-1.20); Glomerular Filtration Rate 23 (60-); Glucose, Blood 134 mg/dL (70-99); Magnesium, Blood 1.6 mg/dL (1.6-2.4); Phosphorus, Blood 3.9 mg/dL (2.5-4.9); Potassium, Blood 4.2 mmol/L (3.5-5.5); Sodium, Blood 144 mmol/L (136-145); Triglycerides 116 mg/dL (30-160)
--- NOTE | 2021-09-07 07:49 | NUR ---
SHIFT SUMMARY PT IS ALERT BUT CONFUSED. PT IS ABLE TO ANSWER SOME QUESTIONS AND FOLLOW SOME COMMANDS. PT HAS HAD NO ACUTE CHANGES AND IS ON 4-6L NC WITH SATS ABOVE 92%. PT REFUSED USING BIPAP LAST NIGHT. HE YELLED AT RT AND WHEN ASKED LATER ON IF HE WOULD WEAR THE MASK HE REFUSED. PT DENIES CHEST PAIN OR SOB WHEN ASKED. PT IS PAINFUL WITH TOUCH OF LOWER EXT. PT HAS YELLED OUT T/O THE NIGHT AND WHEN ASKED WHAT WAS WRONG OR NEEDED HE WOULD SAY "NO" OR "NOTHING." CALL LIGHT IS WITHIN REACH.
--- NOTE | 2021-09-07 08:02 | NUR ---
DR VIKI PENDLETON GAVE VERBAL ORDERS TO DC BICARB GTT, ALBUMIN, AND BUMEX BID. ORDER IN FOR BUMEX 2MG IV ONCE A DAY ONLY.
--- NOTE | 2021-09-07 18:18 | NUR ---
SHIFT SUMMARY PT HAS REMAINED IN BED ALL DAY. DURING REPOSITIONING, PT WOULD CRY OUT IN PAIN BUT WOULD DENY C/O PAIN WHEN ASKED. WOUND CARE WAS PERFORMED THIS AM, BLE WERE CLEANED AND RLE WAS DRESSED, BLE PLACED IN HEEL PROTECTORS. PT REPEATEDLY REMOVED NASAL CANNULA AND WOULD DESAT TO MID 80%'S, RECOVERED QUICKLY EACH TIME. NO ACUTE CHANGES TO CONDITION.
--- NOTE | 2021-09-08 01:55 | NUR ---
DR. BARROSO NOTIFIED OF 12,4 AND 7 BEAT RUN OF V-TACH. ORDER TO OBTAIN MORNING LABS AT THIS TIME. PT DENIES CP. VSS.
[2021-09-08 02:21] LABS: Hematocrit 28.4 % (37.0-53.0); Hemoglobin 7.9 g/dL (13.5-17.5)
[2021-09-08 02:37] LABS: Albumin, Blood 2.5 g/dL (3.4-5.0); Anion Gap 4 mmol/L (6-16); Blood Urea Nitrogen 48 mg/dL (8-24); CO2, Blood 35 mmol/L (21-32); Calcium, Blood 8.5 mg/dL (8.5-10.1); Chloride, Blood 104 mmol/L (98-108); Creatinine, Blood 2.18 mg/dL (0.60-1.20); Glomerular Filtration Rate 29 (60-); Glucose, Blood 137 mg/dL (70-99); Magnesium, Blood 1.4 mg/dL (1.6-2.4); Phosphorus, Blood 3.4 mg/dL (2.5-4.9); Potassium, Blood 3.8 mmol/L (3.5-5.5); Sodium, Blood 143 mmol/L (136-145)
--- NOTE | 2021-09-08 04:52 | NUR ---
SHIFT SUMMARY: PT A&OX2. CONFUSED AND HOLLERING OUT WHILE AWAKE. PT COOPERATIVE MOST OF SHIFT BUT DID PULL OFF O2 THIS MORNING AND REFUSED TO PUT IT BACK ON WHILE SWINGING AT STAFF. PT DESATTED TO 79% DURING THIS TIME. STAFF ABLE TO CALM PATIENT DOWN AND PUT NC BACK IN PLACE. PT CURRENTLY APPEARS TO BE RESTING WITH AN O2 OF 100%. LUNGS CLEAR AND DIMINISHED THROUGHOUT. PT HAD SEVERAL RUNS OF V-TACH THIS SHIFT, OTHERWISE A/FIB IN 80'S. PROVIDER AWARE OF V-TACH AND ORDERS OBTAINED. PT CURRENTLY RECIEVING IV POTASSIUM AND MAG. HEALY PATENT AND DRAINING YELLOW URINE. PT REPOSITIONED T/O NIGHT. DRESSING C/D/I TO RLE.
[2021-09-08 07:32] LABS: Magnesium, Blood 2.1 mg/dL (1.6-2.4); Phosphorus, Blood 3.3 mg/dL (2.5-4.9); Potassium, Blood 4.1 mmol/L (3.5-5.5)
--- NOTE | 2021-09-08 11:40 | NUR ---
Pt resting in bed with his eyes closed upon arrival. RUSSEL Patterson at bedside preparing to insert [employer] [place]. Discussed case and concerns. Pt scheduled for MRI this afternoon. Spoke with Dr Durbin and discussed case. Pt may exceed maximum weight for MRI. Called and spoke with imaging. Imaging will send tech to evaluate Pt. Will await results of MRI before having discussion with decision maker. Palliative Care will remain available.
--- NOTE | 2021-09-08 13:36 | NUR ---
Case Conference Note Spoke with Dr Durbin and discussed case. [facility] may benefit from discussion regarding goals of care. Called and spoke with Flaco Blas ([facility]). Provided update and engaged in therapeutic discussion regarding goals of care. Discussed consideration of G-Tube placement due to Pt's inability to swallow safely. Flaco reports Pt would not want G-Tube placed. Listened as Flaco reports Pt has been saying he wants to . Flaco reports Pt came to the hospital to . He also reports he would not be able to take Pt back and no longer is able to care for Pt. He reports he would not want Pt to in his home. Discussed comfort care and educated on comfort care philosophy with V/U made by Flaco. Flaco elects to pursue comfort care and states this is what Pt would want. He states that he will call family regarding plan. Flaco expresses appreciation and reports no other concerns at this time. Placed comfort care order, comfort care order set, D/C maintenance medications, and placed transfer order for medical floor per V/O from Dr Durbin. Spoke with Pt's Primary RN Avery and discussed case. Palliative Care will remain available for symptom management and supportive visits.
--- NOTE | 2021-09-08 18:41 | NUR ---
SHIFT SUMMARY PT HAD EPISODES OF AGITATION AND SEVERE CONFUSION THIS AM. PT WOULD CRY OUT "HELP! MOM! HELP!" AND WAS CONSOLABLE BUT NOT FULLY REORIENTABLE. THIS PM PT IS RESTING IN BED WITH NO APPARENT SIGNS OF PAIN, DISCOMFORT, OR DISTRESS. FAMILY CAME IN DURING VISITING HOURS AND HAD A DISCUSSION WITH THIS RN, THEY EXPRESSED SATISFACTION THAT QUESTIONS AND CONCERNS WERE ADDRESSED. THERE HAVE BEEN NO ACUTE CHANGES TO CONDITION, VSS.
--- NOTE | 2021-09-09 05:59 | NUR ---
SHIFT SUMMARY: PT RESTING COMFORTABLEY THIS SHIFT WITH ADMINISTRATION OF ATIVAN AND ROXANOL, RESP EVEN AND UNLABORED, TURNED Q2 HOURS AND POSITIONED FOR COMFORT. HOB UP 30*, CALL RITCHIE INREACH, BED LOCKED AND LOW. ORAL CARE GIVEN AT FREQUENT INTERVALS. RUSSEL MCMULLEN
--- NOTE | 2021-09-09 10:33 | NUR ---
PTIS RESTING COMFORTABLY. RR- 16 AND HR IN THE 70'S (APICAL). SECREATIONS HEARD, SCOPOLAMINE PATCH APPLIED AND SUCTIONED. PT DID NOT WAKE UP AT ALL DURING CARES. NO SIGNS OF DISCOMFORT AT THIS TIME.
--- NOTE | 2021-09-09 13:18 | NUR ---
ROXANOL 5MG GIVEN FOR AIR HUNGER. RR: 14.
--- NOTE | 2021-09-09 17:00 | NUR ---
Pt has been lethargic/ obtunded most of the day. Scopolamine patch applied for secretions. Pt appeared comfortable all morning, around 1300 pt woke up a bit more and was groining a bit and appeared anxious and had air hunger. 15mg of roxanol given and 2mg ativan to make pt comfortable. Pt has remained comfortable with Q2hr turns. Family member visited around 1700, updated in person. 2 other family members were updated by the phone today and encouraged to come in to visit with pt.
--- NOTE | 2021-09-10 05:10 | NUR ---
SHIFT SUMMARY: COMFORT MEASURES MAINTAINED WITH USE OF POSITIONING AND INTERMITTENT ADMINISTRATION OF ANXIOLYTIC AND OPIODS PRN WITH GOOD EFFECT. FREQUENT ORAL CARE AND TURNING/REPOSITIONING. +BM, ALEVYN ON COCCYX CHANGED, NO BREAKDOWN NOTED, PLACED FOR PROTECTION. RESP IRREGULAR, UNLABORED. PRN ATROPINE SL HELPING CONTROL SECRETIONS. BED LOCKED AND LOW, CALL RITCHIE IN REACH, REQUIRES TOTAL ASSIST WITH ALL ASPECTS OF CARE. RUSSEL MCMULLEN
--- NOTE | 2021-09-10 07:51 | NUR ---
SOME MOANING AND SECREATIONS, PRN ROXANOL AND ATROPINE GTT GIVEN. RR: 24.
--- NOTE | 2021-09-10 09:31 | NUR ---
PT PASSED 914, DOUBLE NURSE CHECK WITH RUSS GOODE. DAUGHTER ANTHONY NOTIFIED. ANTHONY WILL CHECK IN ON POSSIBLE HOME THAT THE FAMILY PREFERES. ANTHONY WAS ALSO GOING TO NOTIFIY THE OTHER FAMILY MEMBERS. HAO RN NOTIFED MD AND POST MORDOM CARE WAS COMPLETED.
--- NOTE | 2021-09-10 12:01 | NUR ---
DAUGHTER JAKE CALLED BACK, THE FAMILY WOULD LIKE TO USE [facility]. FAMILY WILL BE COMING IN TO SEE PT PRIOR TO TRANSPORT TO HOME.
== END 2021-09-10 15:11 | DRG 871 ==
LOC: ER 06:45 → ERHOLD 11:46 → ICUE 11:46 → MEDS 14:18 → ICUE 09-03 22:40 → PCU 09-06 10:08
PROVIDERS: Emergency Medicine; Internal Medicine; Internal Medicine Nephrology; ADMIT Internal Medicine
PROC: 5A09357 Assistance with Respiratory Ventilation, Less than 24 Consecutive Hours, Continuous Positive Airway Pressure (ICD-10-PCS; 2021-09-02)
PROC: 30233N1 Transfusion of Nonautologous Red Blood Cells into Peripheral Vein, Percutaneous Approach (ICD-10-PCS; principal; 2021-09-04)
PROC: 3E033XZ Introduction of Vasopressor into Peripheral Vein, Percutaneous Approach (ICD-10-PCS; 2021-09-04)
DX: A41.9 Sepsis, unspecified organism (principal); J69.0 Pneumonitis due to inhalation of food and vomit; G92.8 Other toxic encephalopathy; J96.21 Acute and chronic respiratory failure with hypoxia; J96.22 Acute and chronic respiratory failure with hypercapnia; R65.21 Severe sepsis with septic shock; I63.9 Cerebral infarction, unspecified; J18.9 Pneumonia, unspecified organism; I13.0 Hypertensive heart and chronic kidney disease with heart failure and stage 1 through stage 4 chronic kidney disease, or unspecified chronic kidney disease; N18.4 Chronic kidney disease, stage 4 (severe); I48.20 Chronic atrial fibrillation, unspecified; I50.32 Chronic diastolic (congestive) heart failure; E66.2 Morbid (severe) obesity with alveolar hypoventilation; E87.2 Acidosis; N17.9 Acute kidney failure, unspecified; N39.0 Urinary tract infection, site not specified; I47.2 Ventricular tachycardia; E87.5 Hyperkalemia; Z66 Do not resuscitate; I48.91 Unspecified atrial fibrillation; E11.22 Type 2 diabetes mellitus with diabetic chronic kidney disease; Z51.5 Encounter for palliative care; E78.5 Hyperlipidemia, unspecified; Z60.2 Problems related to living alone; I27.81 Cor pulmonale (chronic); E11.42 Type 2 diabetes mellitus with diabetic polyneuropathy; E86.0 Dehydration; Y95 Nosocomial condition; E83.42 Hypomagnesemia; R13.10 Dysphagia, unspecified; E88.09 Other disorders of plasma-protein metabolism, not elsewhere classified; M10.9 Gout, unspecified; D63.1 Anemia in chronic kidney disease; T40.605A Adverse effect of unspecified narcotics, initial encounter; I87.2 Venous insufficiency (chronic) (peripheral); Z96.653 Presence of artificial knee joint, bilateral; Z98.890 Other specified postprocedural states; Z68.37 Body mass index [BMI] 37.0-37.9, adult; Z79.82 Long term (current) use of aspirin; Z79.899 Other long term (current) drug therapy; Z98.42 Cataract extraction status, left eye; Z98.41 Cataract extraction status, right eye; Z28.21 Immunization not carried out because of patient refusal
CPT/HCPCS: 36415; 36430; 36600; 70450; 71045; 76770; 80048; 80053; 80069; 81001; 82607; 82728; 82746; 82803; 82947; 83540; 83550; 83605; 83735; 83880; 84100; 84132; 84145; 84165; 84478; 84484; 85014; 85018; 85025; 85027; 86850; 86900; 86901; 86923; 87040; 87086; 92526; 92610; 93005; 93010; 93306; 93971; 94660; 94760; 94762; 96365; 96375; 97110; 97162; 97167; 97530; 99285-25; A9270; C1751; C8929; J0456; J0690; J0696; J0881; J1265; J1650; J1815; J2060; J2310; J2543; J2916; J3010; J3475; J3480; J7030; J7040; J7050; J7060; J7070; J7120; P9016; P9041; P9046; Q9957